=== PATIENT | male | born 1950 | race Caucasian/White ===

== ENCOUNTER 2020-01-09 14:13 | Inpatient (IN) | payer OTHER, MEDICARE, SELFPAY ==
[2020-01-09] VITALS (15 sets, daily range): BP systolic 118–147; BP diastolic 81–101; PULSE 77–102; RESP 11–26; TEMP 36.5–36.8; O2SAT 87–98; BMI 32.5
--- NOTE | 2020-01-09 14:14 | ECG_ITS ---
Measurements Intervals [place] Rate: 92 P: 55 NV: 182 QRS: -12 QRSD: 86 T: 35 QT: 352 QTc: 437 SINUS RHYTHM ANTERIOR MYOCARDIAL INFARCTION , POSSIBLY ACUTE [40+ ms Q WAVE AND/OR ST/T ABNOR ABNORMALITY IN V3/V4] INFERIOR MYOCARDIAL INFARCTION , PROBABLY OLD [40+ ms Q WAVE AND/OR ST/T ABNO ABNORMALITY IN II/aVF] MARKED ST ELEVATION, CONSIDER LATERAL INJURY [MARKED ST ELEVATION W/O NORMALLY INFLECTED T WAVE IN I/aVL/V5/V6] ACUTE [place] No previous ECG available for comparison Electronically Signed On 01-09-2020 16:36:37 CDT by Juanjo Hensley M.D. [id number]
--- NOTE | 2020-01-09 14:17 | ED_ITS ---
HPI - Chest Pain General: Chief Complaint: Chest Pain Stated Complaint: CHEST PAIN Time Seen by Provider: 01/09/20 14:17 History of Present Illness: HPI narrative: Mr. Aparicio is a 69-year-old male presents with an episode of chest pain via EMS. EMS had called in ahead of time and texted me a EKG that showed a clear STEMI. STEMI alert was called early. He has not had previous cardiology intervention. He did a day or 2 ago have some chest discomfort that resolved and then he began having it last night and progressively worsened until he called EMS today. Prior to arrival of EMS he had 325 aspirin intake and 2-3 sublingual nitro on his own EMS gave him 2 more nitro and then gave him a topical inch of Nitropaste. He denies being diabetic. Dr. Hensley was in the room and is assuming care of the patient at the same time I seen the patient. MD complaint: chest pain Onset (ago): hour(s) Timing of current episode: constant Prior episodes: Yes Onset: during exertion Pain location: substernal and left chest Pain radiation: left arm and left shoulder Severity: severe Quality: tightness and heaviness Relieving factors: nitroglycerin Exacerbating factors: exertion Associated symptoms: Reports diaphoresis, dyspnea and nausea Treatment prior to arrival: aspirin, nitroglycerin and oxygen Review of Systems Const: Reports: diaphoresis ENMT: Denies: throat pain, ear or mastoid pain, nasal discharge or nasal congestion Card: Denies: chest pain, edema, dyspnea on exertion or orthopnea Resp: Reports: dyspnea GI: Reports: nausea : Denies: flank pain, dysuria, urinary frequency or urinary urgency Skin/Breast: Denies: rash or pruritus [facility] ED PFSH: Medical History Acute anterior wall [place] Essential hypertension Social History Smoking and tobacco status: never smoked Physical Exam Const: COMMON NORMALS: no acute distress GENERAL APPEARANCE: cooperative and comfortable ORIENTATION/CONSCIOUSNESS: Yes awake, Yes oriented to person, Yes oriented to place and Yes oriented to time Eye: COMMON NORMALS: Equal, round and reactive pupils present, EOMs intact bilaterally, conjunctivae normal and no scleral icterus CONJUNCTIVA: Yes conjunctivae normal PUPIL: Yes Equal, round and reactive pupils present Neck/C-Spine: COMMON NORMALS: full ROM, no lymphadenopathy, supple and no JVD Lymph: LYMPHATIC: no lymphadenopathy noted and no lymphedema noted Resp: COMMON NORMALS: normal respiratory effort, No retractions, No use of accessory muscles and clear to auscultation bilaterally AUSCULTATION: clear to auscultation bilaterally Cardio: COMMON NORMALS: no JVD, regular rate, regular rhythm and No murmurs present (Cardio) RATE: regular rate RHYTHM: regular rhythm GI: COMMON NORMALS: Soft to palpation and No hepatosplenomegaly present AUSCULTATION: Yes normoactive bowel sounds PALPATION: Yes Soft to palpation, No Tenderness to palpation present (GI), No Guarding due to palpation present (GI) and Yes No hepatosplenomegaly present Extremity: COMMON NORMALS: normal to inspection, capillary refill normal, no clubbing, cyanosis or edema, no calf tenderness and no pedal edema Neuro: SENSORIUM/ORIENTATION: Yes oriented to person, Yes oriented to place and Yes oriented to time Skin: COMMON NORMALS: no rashes or lesions noted GENERAL SKIN EXAM: no rashes or lesions noted OTHER: Diaphoretic Course Vital Signs: Vital signs: Vital Signs Temperature 97.7 F 01/09/20 14:20 Pulse Rate 95 01/09/20 14:20 Respiratory Rate 18 01/09/20 14:20 Blood Pressure 144/85 01/09/20 14:20 Pulse Oximetry 98 01/09/20 14:20 MDM - Chest Pain MDM Narrative: Medical decision making narrative: EKG reviewed from EMS as well as EKG are done initially here in the department both shows acute anterior wall STEMI Dr. Hensley is already here and seen the patient at the same time I am. Ordered routine STEMI labs as well as 600 of Plavix 4000 of heparin he is already had his aspirin Dr. Hensley will assume care and he is already left the department for the Licensed Marriage And Family Therapist. Discharge Plan Discharge Condition: Serious Coding Level of Care Code ED Starting Gate Driver for [facility]
--- NOTE | 2020-01-09 14:17 | XACV_ITS ---
Ht: 183 cm Wt: 109 kg BSA: 2.38 m2 Gender: Male : 1950 Exam Priority: Routine Procedure(s): Procedure Description: Diagnostic procedure Procedure Description: PCI procedure Procedure Description: Left Heart Catheterization Procedure Description: Left ventriculography Procedure Description: Drug Eluting Coronary Stent Procedure Description: PTCA Procedure Description: Coronary Angiography Diagnostic Cath Status: Emergency Diagnostic Findings Patient presents with an acute anterior wall CA. Hemodynamically stable. Coronary angiography reveals right coronary artery dominance. The LAD is occluded proximally. Circumflex contains mild diffuse disease. Ramus intermedius is 100% occluded in the midportion. The right coronary artery is a large vessel with an unusual takeoff with mild nonobstructive disease. PCI Status: Emergency PCI LVEF Assessed: Yes PCI Indication: STEMI - Immediate PCI for STEMI Interventional Findings Wire was placed in the LAD. Balloon angioplasty opened the vessel. Patient was subsequently stented with 2 stents in the proximal LAD with good return of RISA-3 flow. Decision for PCI with Surgical Consult: No PCI for Multi-vessel Disease: No Conclusions Acute anterior wall CA with occluded LAD treated with angioplasty and stent and yarsani of flow. Occluded ramus intermedius branch. Significant left ventricular dysfunction in the distribution of the LAD. Ejection fraction 30% with dyskinetic apex. Interventional RX Recommendation: PCI w/o planned CABG Diagnostic RX Recommendation: PCI w/o planned CABG Anticoagulation: Heparin Ventriculography Ejection Fraction: 30.0 % Pressures Phase:Rest AO : 116 mmHg / 63 mmHg ( 82 mmHg ) @ 9:42:00 AM 94 mmHg / 77 mmHg ( 85 mmHg ) @ 9:42:00 AM 114 mmHg / 78 mmHg ( 95 mmHg ) @ 9:43:00 AM / ( 2 mmHg ) @ 10:00:00 AM 124 mmHg / 75 mmHg ( 94 mmHg ) @ :02:00 AM 122 mmHg / 71 mmHg ( 93 mmHg ) @ ::00 AM 130 mmHg / 87 mmHg ( 104 mmHg ) @ 10:05:00 AM 121 mmHg / 100 mmHg ( 108 mmHg ) @ 10:14:00 AM LV : 137 mmHg / 6 mmHg / @ ::00 AM 138 mmHg / 3 mmHg / @ ::00 AM 135 mmHg / 4 mmHg / @ ::00 AM Valves Phase:DefaultPhase AV : 0.0 mmHg @ 3:20:08 PM AV Mean Gradient: 0.0 mmHg @ 3:20:08 PM 0.0 mmHg @ 3:20:08 PM Clinical Evaluation EBL: 5mL-10mL Procedural Details Procedure Consent Obtained. Identified patient by full name and date of as verbalized by the patient/guarantor. Does the consent match the physician's order: Yes. Accurate & Complete Informed Consent: Yes. Inpatient/Outpatient History & Physical on Chart: Yes. If H&P is completed, is and addenduem needed: Yes; If yes, is the addendum complete: N/A. Visualize and Verify Site with Patient/Guarantor: N/A. Relevant Radiology Images available: Yes. The risks, benefits, and alternatives of sedation and/or procedure were discussed by physician. The patient agrees to continue. Procedure started. [facility] Clinical Fraility Score: 4: Vulnerable. Psychological Operations Specialist Indications: Other. Chest Pain Symptom Assessment: Atypical Angina. Cardiovascular Instability: No,. Correct patient, site and procedure confirmed by cath team. Current diagnosis: STEMI. PERRLA. 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 Lungs clear x 5 lobes. IV Site on Arrival: 18 gauge in the left hand. IV Fluids: 0.9% NaCl at KVO. 400 mL infused prior to lab clerk. Pre Procedural Pulses: right radial was 3+. Oxygen started at 2liters/min via nasal canula. bilateral groins was prepped with chloroprep then draped in the usual sterile fashion. right radial was prepped with chloroprep then draped in the usual sterile fashion. Physician notified. Baseline sample Acquired. HR: 71 BPM. Patient's family unavailable. Equipment: 6F - Radial. Physician arrived. Physician scrubbed in. Immediate Pre-Procedure Time Out. Correct Patient: Yes; Correct Procedure: Yes; Correct Site: Yes; Correct Patient Position: Yes; Correct Supplies: Yes; Dried Flammable Prep: Yes; Blood Products Available: N/A;. Lidocaine 1% infiltrated to the right radial. Arterial access obtained. A 6 prydeinig XB 3 catheter in over wire. Catheter inserted over the exchange wire. Multiple views taken of left coronary artery. [place] guidewire was advanced through the guide catheter to lesion in the prox LAD. Inflation number : 1 A AB TREK 3.00X12 RX BALLOON was prepped and advanced across the Prox LAD , then inflated to 8 HARIS for 0:20 seconds. Inflation number: 2 The AB TREK 3.00X12 RX BALLOON was reinflated across the Prox LAD, to 8 HARIS for 0:19 seconds. balloon out. Inflation Number : 3 A MDT R MAKAYLA 3.5X22 JUNG -Lot Number# [id number] exp 11/16/2020 was prepped and advanced across the Prox LAD. The stent was deployed at 12 HARIS for 0:46 seconds. stent balloon out. checking results. Inflation Number : 4 A MDT R MAKAYLA 3.0X8 JUNG -Lot Number# [id number] exp 05/29/2020 was prepped and advanced across the Prox LAD. The stent was deployed at 14 HARIS for 0:45 seconds. balloon out and checking results. wire out. Guide catheter out. A 6 prydeinig Angled Pig catheter in over wire. Catheter inserted over the exchange wire. LV gram performed in RAMIREZ @ 10 mL/second for a total of 30 mL. EDP Sample taken: LV 137/6,44; HR: 90 BPM; SpO2: 91%. EDP Sample taken: LV 138/3,45; HR: 100 BPM; SpO2: 87%. Pullback taken: LV 135/4,42; AO 124/75(94); Mean: 0mmHg, Peak to Peak: 0mmHg, SEP: 7sec/min; HR: 108 BPM; SpO2: 86%. Catheter out. Catheter removed over the exchange wire. A 6 prydeinig JR4 catheter in over wire. Multiple views taken of right coronary artery. Catheter out. A 6 prydeinig 3DRC catheter in over wire. Catheter out. A 6 prydeinig AL1 catheter in over wire. Multiple views taken of right coronary artery. Catheter out. TR band placed. Hemostasis obtained. Post Procedure: Pulses reassessed and unchanged. PERRLA. 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 No VTE prophylaxis required. Medication's Wasted: Lidocaine 1% = 18 mL. Medication's Wasted: Nitro = 49.8 mL. Medication's Wasted: Heparin = 1000 Units. Total IV fluids: 150 mL. Fluoro: 12:07. Contrast type used: Visipaque 320 mgI/mL, 500 mL bottle. [id number]. PCI Indication: STEMI. Post-op diagnosis: STEMI. Complications: none. Estimated blood loss: 5mL-10mL. Procedure completed. Patient transferred by wheelchair to 1st floor. Site: Right Radial artery Sheath Size: 6 Fr Hemostasis Success: Unsuccessful Procedure Medications Start: 2:45 PM Stop: 2:45 PM Medication: Versed Amount: 1 mg Route: I.V. Start: 2:46 PM Stop: 2:46 PM Medication: Fentanyl Amount: 50 mcg Route: I.V. Start: 2:47 PM Stop: 2:47 PM Medication: Fentanyl Amount: 50 mcg Route: I.V. Start: 2:47 PM Stop: 2:47 PM Medication: Versed Amount: 1 mg Route: I.V. Start: 2:52 PM Stop: 2:52 PM Medication: Versed Amount: 1 mg Route: I.V. Start: 2:52 PM Stop: 2:52 PM Medication: Fentanyl Amount: 50 mcg Route: I.V. I, the attending physician, have reviewed and verified all procedure medications. Yes, all medications given per verbal order Report Signatures Finalized by:Dr. Juanjo Hensley MD on 01/09/2020 3:27:37 PM
[2020-01-09] MEDS: heparin 5,000 unit/mL INJ 1 mL 4000 UNIT IVP (14:22)
--- NOTE | 2020-01-09 14:24 | P.HP_ITS ---
Providers/Chief Complaint Admitting Physician: Shellie Chief Complaint: CHEST PAIN History of Present Illness Waqar Aparicio is a 69 year old male with no known prior history of coronary disease who presented with a ST elevation VT. He had an episode of chest discomfort a couple days ago but it went away. Today while working on his boat he had the sudden onset of very typical chest discomfort with mild diaphoresis. No nausea or vomiting or shortness of breath. He called the ambulance who were about 45 minutes away. He was given aspirin, sublingual nitroglycerin and Nitropaste in route. He was also given 100 mcg of fentanyl. Here he was given 4000 units of heparin. His EKG shows ST segment elevation in the anterior precordial leads. Review of Systems General: Reports: 10 or more systems reviewed and unremarkable except in HPI and below Medications/Allergies Allergies Allergy/AdvReac Type Severity Reaction Status Date / Time No Known Allergies Allergy Verified 01/09/20 14:20 PFSH Acute PFSH: Medical History (Updated 01/09/20 @ 14:26 by Juanjo Hensley MD) Acute anterior wall [place] Essential hypertension Social History Smoking and tobacco status: never smoked Vitals/I&O/Wt Last Vital Signs Temp 97.7 F 01/09/20 14:20 Pulse 95 01/09/20 14:20 Resp 18 01/09/20 14:20 BP 144/85 01/09/20 14:20 Pulse Ox 98 01/09/20 14:20 Weight last 48 hrs Weight 240 lb Physical Exam Narrative: EXAM NARRATIVE: GENERAL: In general he is uncomfortable HEENT: Exam within normal limits. NECK: Supple without jugular vein distention. The carotid upstroke is normal without bruits. BACK: Exam normal. LUNGS: Clear. HEART: Regular rate and rhythm. ABDOMEN: Benign without organomegaly or tenderness. EXTREMITIES: No edema. NEUROLOGIC: Exam normal. SKIN: Unremarkable. A&P Assessment and plan (1) Essential hypertension: Status: Acute (2) Acute anterior wall [place]: Status: Acute Additional A&P Information Cardiac catheterization as soon as possible. Expect an LAD lesion. 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
[2020-01-09] MEDS: clopidogrel 300 mg Tablet 600 MG PO (14:25)
[2020-01-09 14:36] LABS: Basophils # 0.1 10^3/uL (0.0-0.1); Basophils % 0.5 %; Eosinophils # 0.2 10^3/uL (0.0-0.8); Eosinophils % 1.3 %; Hematocrit 44.7 % (42.0-52.0); Hemoglobin 14.5 g/dL (11.7-16.6); Lymphocytes # 1.6 10^3/uL (0.8-4.8); Lymphocytes % 13.4 %; Mean Corpuscular HGB Conc 32.4 g/dL (30.0-36.0); Mean Corpuscular Hemoglobin 29.8 pg (28.0-34.0); Mean Corpuscular Volume 91.8 fL (80-94); Mean Platelet Volume 11.1 fL (7.4-10.4); Monocytes % 8.7 %; Neutrophils % 75.6 %; Nucleated Red Blood Cells % 0 %; Platelet Count 232 10^3/cmm (130-400); Red Blood Count 4.87 10^6/uL (4.1-5.3); White Blood Count 11.9 10^3/uL (4.0-10.0)
[2020-01-09 14:52] LABS: INR 0.95 (0.8-1.2)
[2020-01-09 14:53] LABS: Alanine Aminotransferase 20 U/L (0-41); Alkaline Phosphatase 68 IU/L (40-130); Anion Gap 15.2 (5-19); Aspartate Amino Transferase 30 U/L (0-40); Blood Urea Nitrogen 25 mg/dL (8-23); Calcium 8.8 mg/dL (8.5-10.5); Carbon Dioxide 26 mmol/L (22-29); Chloride 100 mmol/L (98-107); Globulin 2.5 g/dL (1.3-4.6); Glomerular Filtration Rate 55.1 mL/min (90-130); Glucose 232 mg/dL (65-115); Osmolality Calculated 288 mOsm/kg (285-295); Potassium 4.2 mmol/L (3.5-5.1); Sodium 137 mmol/L (136-145); Total Bilirubin 0.3 mg/dL (0.15-1.2); Total Protein 6.5 g/dL (6.6-8.7)
[2020-01-09 14:58] LABS: Troponin(5th) Baseline 281 ng/mL (0-15)
--- NOTE | 2020-01-09 16:14 | ECG_ITS ---
Measurements Intervals [place] Rate: 89 P: 53 UT: 177 QRS: 6 QRSD: 93 T: 87 QT: 362 QTc: 440 SINUS RHYTHM LOW QRS VOLTAGE IN EXTREMITY LEADS PROBABLE INFERIOR MYOCARDIAL INFARCTION, PROBABLY OLD ANTEROLATERAL MYOCARDIAL INFARCTION, PROBABLY RECENT ACUTE [place] Compared to ECG 01/09/2020 14:26:59 Low QRS voltage now present ST (T wave) deviation no longer present Myocardial infarct finding still present Electronically Signed On 01-10-2020 18:09:15 CDT by Ngoc Posadas M.D. [email or web address]
[2020-01-09] MEDS: metoprolol tartrate 50 mg Tablet PO (19:09)
--- NOTE | 2020-01-09 19:09 | PC.NURSE ---
medication rounding delayed due to patient care
[2020-01-09] MEDS: sodium chloride 0.9% 1,000 ML 30 ML IV (19:53)
[2020-01-09] MEDS: atorvastatin 40 mg Tablet 80 MG PO (19:54)
--- NOTE | 2020-01-09 20:14 | ECG_ITS ---
Measurements Intervals [place] Rate: 74 P: 43 PA: 180 QRS: -14 QRSD: 101 T: 90 QT: 410 QTc: 456 SINUS RHYTHM PROBABLE INFERIOR MYOCARDIAL INFARCTION [35 ms Q WAVE IN II/aVF], PROBABLY OLD ANTEROLATERAL MYOCARDIAL INFARCTION [40+ ms Q WAVE IN I/aVL/V3-V6], PROBABLY RECENT ACUTE [place] Compared to ECG 01/09/2020 14:26:59 ST (T wave) deviation no longer present Myocardial infarct finding still present Electronically Signed On 01-10-2020 18:07:49 CDT by Ngoc Posadas M.D. [id number]
[2020-01-09 23:06] LABS: Troponin 5 6HR > 10000 ng/mL (0-15)
[2020-01-09 23:06] LABS: Troponin 5 2HR > 10000 ng/mL (0-15)
[2020-01-10] VITALS (10 sets, daily range): BP systolic 105–126; BP diastolic 71–88; PULSE 70–88; RESP 16–22; TEMP 36.6–37.1; O2SAT 92–98
--- NOTE | 2020-01-10 01:38 | ECG_ITS ---
Measurements Intervals [place] Rate: 73 P: 57 DC: 178 QRS: -12 QRSD: 94 T: 91 QT: 402 QTc: 445 SINUS RHYTHM LOW QRS VOLTAGE IN EXTREMITY LEADS [QRS DEFLECTION < 0.5 mV IN LIMB LEADS] ANTEROLATERAL MYOCARDIAL INFARCTION [40+ ms Q WAVE IN I/aVL/V3-V6], PROBABLY RECENT ACUTE [place] Compared to ECG 01/09/2020 14:26:59 Low QRS voltage now present ST (T wave) deviation no longer present Myocardial infarct finding still present Electronically Signed On 01-10-2020 18:01:22 CDT by Ngoc Posadas M.D. [id number]
[2020-01-10 05:29] LABS: Basophils % 0.2 %; Eosinophils % 0.1 %; Hematocrit 43.7 % (42.0-52.0); Hemoglobin 14.1 g/dL (11.7-16.6); Lymphocytes # 1.4 10^3/uL (0.8-4.8); Lymphocytes % 9.8 %; Mean Corpuscular HGB Conc 32.3 g/dL (30.0-36.0); Mean Corpuscular Hemoglobin 29.7 pg (28.0-34.0); Mean Corpuscular Volume 92.2 fL (80-94); Mean Platelet Volume 10.9 fL (7.4-10.4); Monocytes # 1.3 10^3/uL (0.2-0.9); Monocytes % 9.4 %; Neutrophils % 80.1 %; Nucleated Red Blood Cells % 0 %; Platelet Count 241 10^3/cmm (130-400); Red Blood Count 4.74 10^6/uL (4.1-5.3); Red Cell Distribution Width 14.1 % (12.1-15.1); White Blood Count 13.8 10^3/uL (4.0-10.0)
--- NOTE | 2020-01-10 05:37 | ECG_ITS ---
Measurements Intervals [place] Rate: 73 P: 14 CT: 179 QRS: -2 QRSD: 102 T: 102 QT: 422 QTc: 467 SINUS RHYTHM LOW QRS VOLTAGE IN EXTREMITY LEADS INFERIOR MYOCARDIAL INFARCTION, PROBABLY OLD ANTEROLATERAL MYOCARDIAL INFARCTION, PROBABLY RECENT ACUTE [place] Compared to ECG 01/09/2020 14:26:59 Low QRS voltage now present ST (T wave) deviation no longer present Myocardial infarct finding still present Electronically Signed On 01-10-2020 18:00:44 CDT by Ngoc Posadas M.D. [email or web address]
[2020-01-10] MEDS: alum-mag-hydroxide-sime 30 mL UDC PO (05:40)
--- NOTE | 2020-01-10 05:56 | PC.NURSE ---
0540 Patient C/O indigestion. Not radiating, states Maalox might help, EKG done without changes noted by myself, patient reports feeling much better HR 77, BP 121/73 RR 13 no diaphoresis or ectopy noted
[2020-01-10 05:59] LABS: Anion Gap 15.7 (5-19); Blood Urea Nitrogen 21 mg/dL (8-23); Calcium 8.8 mg/dL (8.5-10.5); Carbon Dioxide 23 mmol/L (22-29); Chloride 104 mmol/L (98-107); Glomerular Filtration Rate 84.2 mL/min (90-130); Glucose 139 mg/dL (65-115); Osmolality Calculated 287 mOsm/kg (285-295); Potassium 3.7 mmol/L (3.5-5.1); Sodium 139 mmol/L (136-145)
--- NOTE | 2020-01-10 06:17 | PM.PN ---
Subjective Subjective: Interval history: Waqar has had a relatively uneventful night. The nurse mentioned a very brief episode of a irregular tachycardia which on the monitor looks like an episode of atrial fibrillation. It was very short and self-limiting. He has some residual discomfort in his midepigastrium but feels much better than he did yesterday. His heart rates have otherwise been below 100 and his rhythm sinus rhythm. Blood pressures have been well within the normal limits to slightly high. Medications: Reviewed: Yes Vitals/I&O/Wt Last Vital Signs Temp 98 F 01/10/20 05:35 Pulse 83 01/10/20 05:35 Resp 21 H 01/10/20 05:35 BP 125/86 01/10/20 05:35 Pulse Ox 96 01/10/20 05:35 01/09/20 01/09/20 01/10/20 14:59 22:59 06:59 Intake Total 360 / 360 340 / 700 Output Total 875 / 875 600 / 1475 Balance -515 / -515 -260 / -775 Weight last 48 hrs Weight 240 lb Physical Exam Narrative: EXAM NARRATIVE: GENERAL: In general he looks and feels well HEENT: Exam within normal limits. NECK: Supple without jugular vein distention. The carotid upstroke is normal without bruits. BACK: Exam normal. LUNGS: Clear. HEART: Regular rate and rhythm. ABDOMEN: Benign without organomegaly or tenderness. EXTREMITIES: No edema. NEUROLOGIC: Exam normal. SKIN: Unremarkable. Data : 01/10/20 05:14 01/10/20 05:14 Other data: The troponin is well above 10,000. His creatinine has come down to normal where it was slightly high yesterday. A&P Assessment and plan (1) Essential hypertension: Status: Acute (2) Acute anterior wall [place]: Status: Acute Additional A&P Information We will continue to monitor him today. I asked him to get up and move around a little bit. This was a large anterior wall [place] with significant myocardium involvement. I suspect that he was having difficulties for longer than he admitted yesterday. His troponin is well over 10,000. I will make medication adjustments today. If he does well he may go home tomorrow morning. We will also monitor him for any recurrence of any arrhythmias. Attestations Medical Necessity Statement*: Needs continued hospitalization for management of an acute anterior wall [place]. 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
[2020-01-10] MEDS: aspirin 81 mg EC Tablet PO (08:47)
[2020-01-10] MEDS: clopidogrel 75 mg Tablet PO (08:47)
[2020-01-10] MEDS: lisinopril 10 mg Tablet PO (08:48)
[2020-01-10] MEDS: metoprolol tartrate 50 mg Tablet PO ×2 (08:48→18:07)
--- NOTE | 2020-01-10 09:54 | PC.CHAP ---
Pastoral Care Encounter/Spiritual Assessment Type of Contact [] Declined retail greeter visit [] Patient/Family/Request visit [] Outpatient visit [] Follow-up visit [] Physician referral [] Code/Alert [x] Routine visit [] Staff referral [] Actively dying [] Patient sleeping [] Family support [] [] Out of room [] Palliative care [] [] Receiving care in room [] Pre-surgical visit [] Trauma [] Long length of stay [] ICU visit [] Other: Relational/Emotional Strength [] Patient feels connected with others/family/visitors/staff [] Distress [] Loneliness/isolation [] Abandonment Spirituality of Patient [] Person of Edilia [] Attends Protestant of their Edilia [] Believes in Prayer [] Reads Bible or Methodist materials [] There are Spiritual issues to be addressed Receiver Stocker Interventions [x] Prayer [] Active listening [] Non-anxious presence [] Spiritual/emotional support [] Crisis/trauma care [] Spiritual counseling [] Bereavement support [] Provided bereavement packet [] Provided Bible/devotional materials [] Provided toy/stuffed animal, coloring book to patient or family member [] Provided Communion [] Anointing/[place] [] Salvation [x] Completed spiritual assessment [] Other: Impact on Illness or Injury [] Angry [] Fearful [] Anxious [] Often cries [] Exhaustion [] Unable to work [] Unable to attend nondenominational [] Unable to walk/stand [] Unable to read [] Unable to drive [] Unable to eat/drink [] Unable to sleep [] Unable to be with family [] Patient intubated [] Other: Summary Patient resting from stent surgery. Time spent with patient 15 min
--- NOTE | 2020-01-10 11:00 | PC.NURSE ---
patient ambulating in [place] to start working up his strength patient reports a poor appetite today educated patient on the recuperation period after a cardiac event patient verbalized understanding
--- NOTE | 2020-01-10 15:00 | PC.NURSE ---
patient reports he had a very good nap and feels like he needs to walk again patient ambulated in [place] to the end and back tolerated activity well denies chest pain or SOB will continue to monitor
--- NOTE | 2020-01-10 18:30 | PC.NURSE ---
IV to left hand Discontinued at this time due to patient discomfort and request for removal; cath intact min bleeding noted patient tolerated well Patient has an IV access in the right AC; reinforced dressing; patient denies any pain or discomfort at sight dressing is clean dry and intact no bruising or redness noted
--- NOTE | 2020-01-10 19:23 | PC.NURSE ---
Addendum entered by Nadine Rodriguez RN 01/10/20 19:24: noted activity at 1330 entered at wrong time Original Note: patient resting in bed appears to be sleeping well Door closed and pearce way noise decreased so patient can rest will contniue to monitor
[2020-01-10] MEDS: sodium chloride 0.9% 1,000 ML 30 ML IV (19:53)
--- NOTE | 2020-01-10 19:55 | PC.NURSE ---
BEDSIDE REPORT FROM OFF GOING NURSE. PT IS RESTING IN BED. NO C/O PAIN AT THIS TIME. DRESSING TO RIGHT RADIAL C/D/I. WILL CONTINUE TO MONITOR.
[2020-01-10] MEDS: atorvastatin 40 mg Tablet 80 MG PO (20:04)
[2020-01-11] VITALS: BP 101/69; PULSE 75; RESP 19; TEMP 36.6; O2SAT 91
[2020-01-11 04:00] VITALS: BP 109/70; PULSE 83; RESP 16; TEMP 36.7; O2SAT 93
--- NOTE | 2020-01-11 06:10 | PC.NURSE ---
PT IS READY TO GET DISCHARGED. PT DENIES PAIN AT THIS TIME. V/S WNL. WILL CONTINUE TO MONITOR.
[2020-01-11 07:46] VITALS: BP 108/65; PULSE 79; RESP 19; O2SAT 93
[2020-01-11] MEDS: aspirin 81 mg EC Tablet PO (09:26)
[2020-01-11] MEDS: clopidogrel 75 mg Tablet PO (09:27)
[2020-01-11] MEDS: lisinopril 10 mg Tablet PO (09:30)
[2020-01-11] MEDS: metoprolol tartrate 50 mg Tablet PO (09:30)
[2020-01-11 10:04] VITALS: PULSE 82; O2SAT 92
--- NOTE | 2020-01-11 12:16 | USCV_ITS ---
Waqar Aparicio Age: 69 Gender: M : 1950 Exam Date: 01/11/2020 12:45 Ordering Phys: Brianda Agarwal MD ([email or web address]) Technologist: Kristan Dc Exam Location: [facility] [place] Indication: STEMI BP: 108 / 65 HR: 76 Rhythm: Sinus Technical Quality: Adequate MEASUREMENTS (Male / Female) Normal Values 2D ECHO LV Diastolic Diameter PLAX 4.4 cm 4.2 - 5.9 / 3.9 - 5.3 cm LV Systolic Diameter PLAX 2.7 cm LV Chamber Size 4.4 cm IVS Diastolic Thickness 1.6 cm 0.6 - 1.0 / 0.6 - 0.9 cm IVS Systolic Thickness 1.9 cm LVPW Diastolic Thickness 0.9 cm 0.6 - 1.0 / 0.6 - 0.9 cm LVPW Systolic Thickness 1.5 cm RV Chamber Size 2.7 cm LVOT Diameter 1.8 cm LV Ejection Fraction 2D Teich 69.7 % LV Ejection Fraction MOD 2C 59.1 % LV Ejection Fraction 2C AL 57.9 % LA Diameter 4.7 cm LA Width 3.7 cm LA Height 6.5 cm RA Width 2.4 cm RA Height 4.4 cm Aorta at Sinotubular Diameter 2.9 cm M-MODE LV Diastolic Diameter MM 4.5 cm 4.2 - 5.9 / 3.9 - 5.3 cm LV Systolic Diameter MM 3.7 cm LV Ejection Fraction MM Teich 36.3 % IVS Diastolic Thickness MM 1.3 cm 0.6 - 1.0 / 0.6 - 0.9 cm IVS Systolic Thickness MM 1.8 cm LVPW Diastolic Thickness MM 1.4 cm 0.6 - 1.0 / 0.6 - 0.9 cm LVPW Systolic Thickness MM 1.9 cm Aortic Annulus Diameter 3.3 cm LA Ao Ratio MM 1.4 MV E Point Septal Separation 0.5 cm DOPPLER AV Peak Velocity 130.0 cm/s LVOT Peak Velocity 95.0 cm/s AV Area Cont Eq vti 1.7 cm squared AV Area Cont Eq pk 1.8 cm squared MV Area PHT 4.8 cm squared Mitral E to A Ratio 0.8 MV E' Velocity 7.0 cm/s Mitral E to MV E' Ratio 13.4 Mitral E to LV E' Lateral Ratio 10.3 Mitral E to LV E' Septal Ratio 19.2 TR Peak Velocity 286.0 cm/s TR Peak Gradient 32.7 mmHg TV Peak E Velocity 57.0 cm/s Right Atrial Pressure 3.0 mmHg Pulmonary Artery Systolic Pressu 35.7 mmHg FINDINGS Left Ventricle Mildly increased left ventricular cavity size. Severely decreased left ventricular systolic function. Left ventricular ejection fraction is estimated at 36 %. There appeared to be mid to distal anterior septal and apical akinesis. Grade I/IV diastolic dysfunction (abnormal relaxation filling pattern), normal to mildly elevated filling pressures. There appeared to be hazy structure in the apex of left ventricle suspicious for LV thrombus. Due to suboptimal quality study contrast echo is suggested to rule out thrombus.. Right Ventricle The right ventricle is normal in size and function. Right Atrium The right atrium is normal in size. Left Atrium The left atrium is normal in size. Mitral Valve Moderately thickened mitral valve. No mitral valve stenosis. Moderate mitral valve regurgitation. Aortic Valve Moderate aortic valve calcification. No aortic valve stenosis. No aortic valve regurgitation. Tricuspid Valve Mild tricuspid valve regurgitation. Pulmonic Valve Structurally normal pulmonic valve without significant stenosis. There is no pulmonic regurgitation. Pericardium Normal pericardium without effusion. Aorta Normal ascending aorta dimension. CONCLUSIONS 1-Mildly increased left ventricular cavity size. Severely decreased left ventricular systolic function. Left ventricular ejection fraction is estimated at 36 %. There appeared to be mid to distal anterior septal and apical akinesis. Grade I/IV diastolic dysfunction (abnormal relaxation filling pattern), normal to mildly elevated filling pressures. There appeared to be hazy structure in the apex of left ventricle suspicious for LV thrombus. Due to suboptimal quality study contrast echo is suggested to rule out thrombus.. 2-Moderately thickened mitral valve. No mitral valve stenosis. Moderate mitral valve regurgitation. 3-Mild tricuspid valve regurgitation. 4-There is no pericardial effusion. 5-Pulmonary artery systolic pressure is within normal limits. 6-Right atrial pressure is around 5 mm of mercury. 7-There are no prior echocardiogram studies to compare. Brianda Agarwal MD (Electronically Signed) Final Date: 11 January 2020 17:38 S
--- NOTE | 2020-01-11 13:01 | P.DS_ITS ---
Discharge Providers Date of Admission: 01/09/20 16:40 Date of Discharge: January 11, 2020 Attending Provider at Admission: Juanjo Hensley MD Attending Provider at Discharge: Juanjo Hensley MD Primary Care Provider: Yuriy Salazar MD Diagnoses at Discharge Discharge Diagnosis (1) Essential hypertension: Status: Acute (2) Acute anterior wall KS: Status: Acute Reason for Visit Reason for Visit: CHEST PAIN Hospital Course Discharge Summary: 69-year-old male past medical history seen for hypertension hyperlipidemia presented with anterior wall ST elevation KS he was taken to the Operating Room Coordinator treated with drug-eluting stent. Left ventricular ejection fraction was estimated at 30%. Over next couple of days patient recovered with optimization of medicines. He is asymptomatic denies any chest pain. He is w alking around without any difficulty. He denies heart failure symptoms. Right wrist wound looks good. He is being discharged home. He is going to follow-up with Dr. Proctor. I will ask for echocardiogram to assess LV function before discharge. Physical Exam Narrative: EXAM NARRATIVE: GENERAL: Patient is alert, awake and oriented x3. NECK: No jugular vein distension. HEENT: No cyanosis. No icterus. No pallor. HEART: Regular S1 and S2. No murmur, rub or gallop. LUNGS: Clear to auscultate bilaterally. ABDOMEN: Soft, nontender and nondistended. Positive bowel sounds. No guarding, rebound or tenderness. CENTRAL NERVOUS SYSTEM: Grossly nonfocal. 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 Stat Exams 01/09/20 14:17 Completed Pending at discharge Category Date Time Status CV echo complete* [id number] Routine Ultrasound 01/11/20 12:16 Ordered Vitals: Last Vital Signs Temp 98.1 F 01/11/20 04:00 Pulse 82 01/11/20 10:04 Resp 19 H 01/11/20 07:46 BP 108/65 01/11/20 07:46 Pulse Ox 92 01/11/20 10:04 Discharge Plan Discharge Patient Disposition: Home, Self-Care Condition: Stable Prescriptions: New aspirin 81 mg Tablet,Delayed Release (Dr/Ec) 81 mg PO DAILY Qty: 90 RF: 4 atorvastatin 40 mg Tablet 80 mg PO BEDTIME Qty: 90 RF: 4 clopidogrel 75 mg Tablet 75 mg PO DAILY Qty: 90 RF: 4 lisinopril 10 mg Tablet 10 mg PO DAILY Qty: 90 RF: 4 metoprolol tartrate 50 mg Tablet 50 mg PO BID Qty: 60 RF: 4 Nitrostat 0.4 mg Tablet, Sublingual 0.4 mg sublingual Q5M PRN (Reason: Chest Pain) Qty: 30 RF: 3 Protonix 40 mg tablet,delayed release (DR/EC) 40 mg PO DAILY 28 Days RF: 3 Discharge Orders: Discharge Order (Routine); Ordered 01/11/20 Ordered By: Brianda Agarwal Referrals: Yuriy Salazar MD [Primary Care Provider] - Discharge Diet: Cardiac and Low Salt Discharge Activity: Increase activity as tolerated Patient Instructions: Metoprolol (By mouth), Nitroglycerin (By mouth), Lisinopril (By mouth), Aspirin (By mouth), Atorvastatin (By mouth), Clopidogrel (By mouth), Pantoprazole (By mouth), Low Sodium Diet, Myocardial Infarction (DC), Chest Pain Stoplight, Post Angiogram Home Care Instructions, Post Heart Attack Stoplight Activity Restrictions/Additional Instructions: You will have a follow-up with Monica Caldera NP in 7 days and a follow-up with Dr Hensley in 6 weeks. [facility] will be calling you with these appointments. If you have not heard from them by Monday afternoon, please call them at [phone]. Discharge Date/Time: 01/11/20 14:06 Discharge Attestations Time Spent in Discharge Care*: greater than 30 min Specific Discharge Activities: Specific discharge activities: educating patient and educating and/or supporting family/caregiver Quality Metrics Clinical Quality Measures During this hospital stay, did patient experience: AMI Clinical Trial Participant: No Contraindication to aspirin (AMI): Aspirin given Contrai ndication to statin: Statin prescribed Contraindication to PCI: PCI performed Contraindication to Fibrinolytics: Alternative treatment initiated Coding Level of Care Code Established 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
[2020-01-11 13:38] VITALS: PULSE 82; O2SAT 92
--- NOTE | 2020-01-11 14:07 | PC.NURSE ---
right antecubital iv dc'd.pressure held x 3 min and drsg applied.pt tolerated procedure well.
--- NOTE | 2020-01-11 18:09 | PC.NURSE ---
pt had echocardiogram just prior to discharge today.at 1725 dr carrera notified me that echo showed possible atrial thrombus ..and requested that i phone in prescription for eliquis, and to notify pt to pick it up tonight.time was of the essence..since pharmacies will be closing soon , and pt lives miles from nearest open pharmacy.i notified pt and ...and mentioned that she was on xarelto ,and would this be acceptable substitution for eliquis..since they may not be able to get to a pharmacy before they close tonight.i called dr carrera and he stated that this was acceptable due to the situation.dr carrera states he will order an echo with contrast at the earliest opening.i instructed pt and spouse to call dr carrera personally on monday morning for specifics.i also instructed in s/sxs stroke,and to call ems immediately should s/sxs appear. both verb understanding of instructions
== END 2020-01-11 14:06 | disposition home or self-care (01) | DRG 247 ==
LOC: ER 14:29 → CCL 14:32 → CSU 16:52
PROVIDERS: Family Medicine; Internal Medicine Cardiovascular Disease; Admitting Provider Internal Medicine Cardiovascular Disease; PCP Family Medicine; Visit Provider Internal Medicine Cardiovascular Disease
PROC: 027035Z Dilation of Coronary Artery, One Artery with Two Drug-eluting Intraluminal Devices, Percutaneous Approach (ICD-10-PCS; principal; 2020-01-09 13:00)
PROC: 027035Z Dilation of Coronary Artery, One Artery with Two Drug-eluting Intraluminal Devices, Percutaneous Approach (ICD-10-PCS; 2020-01-09 13:00)
DX: I21.09 ST elevation (STEMI) myocardial infarction involving other coronary artery of anterior wall (principal); I10 Essential (primary) hypertension; E78.5 Hyperlipidemia, unspecified; I48.91 Unspecified atrial fibrillation; I25.10 Atherosclerotic heart disease of native coronary artery without angina pectoris
CPT/HCPCS: 12345; 36415; 80048; 80053; 83735; 84484; 85025; 85610; 93005; 93306; 93452; 96375; 99283; C1725; C1769; C1874; C1887; C1894; C9606; J1644; J2001; J2250; J3010; J3490; J7030; Q9967

== ENCOUNTER 2020-01-20 07:53 | Outpatient (CLI) | payer OTHER, MEDICARE, SELFPAY ==
--- NOTE | 2020-01-20 08:04 | USCV_ITS ---
Waqar Aparicio Age: 69 Gender: M : 1950 Exam Date: 01/20/2020 08:23 Ordering Phys: Brianda Agarwal MD ([email or web address]) Technologist: Ele Li Exam Location: [facility] [place] Indication: DVT BP: / HR: 74 Rhythm: Sinus Technical Quality: Adequate MEASUREMENTS (Male / Female) Normal Values 2D ECHO LV Diastolic Diameter PLAX 6.1 cm 4.2 - 5.9 / 3.9 - 5.3 cm LV Systolic Diameter PLAX 4.5 cm LV Chamber Size 5.3 cm IVS Diastolic Thickness 1.5 cm 0.6 - 1.0 / 0.6 - 0.9 cm IVS Systolic Thickness 1.9 cm LVPW Diastolic Thickness 1.3 cm 0.6 - 1.0 / 0.6 - 0.9 cm LVPW Systolic Thickness 1.7 cm RV Chamber Size 3.7 cm LVOT Diameter 2.0 cm LV Ejection Fraction 2D Teich 48.7 % LA Diameter 2.7 cm LA Width 3.9 cm LA Height 4.5 cm RA Width 3.8 cm RA Height 4.4 cm Aorta at Sinotubular Diameter 3.1 cm FINDINGS Left Ventricle Right Ventricle Right Atrium Left Atrium Mitral Valve Aortic Valve Tricuspid Valve Pulmonic Valve Pericardium Aorta CONCLUSIONS Please note that this is a limited contrast study to rule out LV thrombus as there was suspicion on regular echo. Mildly increased left ventricular cavity size. Severely decreased left ventricular systolic function. Left ventricular ejection fraction is estimated at 36 %. There appeared to be mid to distal anterior septal and apical akinesis. Grade I/IV diastolic dysfunction (abnormal relaxation filling pattern), please note that this is a contrast study to rule out LV thrombus. There is no left ventricle thrombus noted. Cannot compare with prior study since this is a study with contrast however no left ventricle thrombus noted. Brianda Agarwal MD (Electronically Signed) Final Date: 20 January 2020 17:54 S MTDD
[2020-01-20] MEDS: perflutren protein-a microsphr 0.22 mg/mL SDV 3 mL IV (09:30)
== END 2020-01-20 07:54 | disposition home or self-care (01) ==
LOC: US 07:54
PROVIDERS: PCP Family Medicine; Visit Provider Internal Medicine Cardiovascular Disease
DX: I50.9 Heart failure, unspecified (principal)
CPT/HCPCS: 80048; C8924; C8929; Q9956

== ENCOUNTER 2020-01-22 23:30 | Inpatient (IN) | payer OTHER, MEDICARE, SELFPAY ==
[2020-01-22 23:36] VITALS: BP 134/82; PULSE 95; RESP 18; TEMP 36.7; O2SAT 91; BMI 31.8
--- NOTE | 2020-01-22 23:46 | XR_ITS ---
WS: [id number] XR chest 1V portable [id number] REASON FOR EXAM: Dyspnea FINDINGS: Cardiomegaly changes are noted. Reticular changes both lung mujica suggesting chronic interstitial findings. There is no pneumonia, pleural effusion, pulmonary edema, or mass effect. The hilum and apices normal. XR/XR chest 1V portable [id number] IMPRESSION: Cardiomegaly Chronic interstitial findings.
[2020-01-23] VITALS (24 sets, daily range): BP systolic 95–137; BP diastolic 56–87; PULSE 63–104; RESP 10–24; TEMP 36.1–36.8; O2SAT 93–99
--- NOTE | 2020-01-23 00:12 | CTR_ITS ---
PROCEDURE INFORMATION: Exam: CT Angiography Chest With Contrast Exam date and time: 01/23/2020 12:25 AM Age: 69 years old Clinical indication: Cough and shortness of breath and other: Hemoptysis; Cough with hemorrhage; Prior surgery; Surgery date: <1 month; Surgery type: Stents 2 weeks ago TECHNIQUE: Imaging protocol: Computed tomographic angiography of the chest with intravenous contrast. 3D rendering: MIP and/or 3D reconstructed images were created by the technologist. Radiation optimization: All CT scans at this facility use at least one of these dose optimization techniques: automated exposure control; mA and/or kV adjustment per patient size (includes targeted exams where dose is matched to clinical indication); or iterative reconstruction. Contrast material: OMNI 350; Contrast volume: 95 ml; Contrast route: INTRAVENOUS (IV); COMPARISON: No relevant prior studies available. RADIATION DOSE METRICS: Total DLP (mGy-cm): 632.68 FINDINGS: Pulmonary arteries: No pulmonary emboli identified. Aorta: Mild atherosclerotic calcification of the thoracic aorta. No thoracic aortic aneurysm. Lungs: Diffuse bilateral interstitial thickening, consistent with pulmonary edema. Moderate patchy groundglass opacities scattered throughout both lungs. This may be a manifestation of pulmonary edema, pulmonary hemorrhage, hypersensitivity pneumonitis, and infectious process (especially opportunistic). Pleural space: No pneumothorax. Small bilateral pleural effusions. Heart: Heart size within normal limits. Small pericardial effusion. Lymph nodes: Enlarged noncalcified right tracheobronchial lymph node measuring 1.5 cm short axis on series 2, image 272. This is nonspecific. Calcified subcarinal, right tracheobronchial, and left tracheobronchial lymph nodes, consistent with old granulomatous disease. Bones/joints: Unremarkable. No acute fracture. Soft tissues: Unremarkable. Other findings: Images of the upper abdomen were reviewed and are unremarkable. CT/CT angio chest PE protcl [id number] IMPRESSION: 1. No pulmonary emboli identified. 2. Findings suggesting pulmonary edema of moderate severity. Pulmonary hemorrhage, hypersensitivity pneumonitis, and infectious process (especially opportunistic) could be coexisting. 3. Small bilateral pleural effusions. 4. Small pericardial effusion. Radiation Dose CTDIVOL = (mGy): DLP = 632.68 (mGy-cm)
--- NOTE | 2020-01-23 00:13 | ECG_ITS ---
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 Measurements Intervals [place] Rate: 85 P: 59 ND: 185 QRS: 66 QRSD: 102 T: 134 QT: 400 QTc: 478 Interpretive Statements SINUS RHYTHM INDETERMINATE AXIS LOW QRS VOLTAGE ANTEROLATERAL MYOCARDIAL INFARCTION, PROBABLY RECENT ACUTE FL Compared to ECG 01/10/2020 05:40:33 Indeterminate axis now present Myocardial infarct finding still present Electronically Signed On 01-23-2020 16:25:15 CDT by Ngoc Posadas M.D. [id number]
[2020-01-23 00:42] LABS: Basophils # 0.1 10^3/uL (0.0-0.1); Basophils % 0.7 %; Eosinophils # 0.3 10^3/uL (0.0-0.8); Eosinophils % 3.4 %; Hematocrit 39.4 % (42.0-52.0); Hemoglobin 12.9 g/dL (11.7-16.6); Lymphocytes # 1.1 10^3/uL (0.8-4.8); Lymphocytes % 12.4 %; Mean Corpuscular HGB Conc 32.7 g/dL (30.0-36.0); Mean Corpuscular Hemoglobin 29.5 pg (28.0-34.0); Mean Corpuscular Volume 90.2 fL (80-94); Mean Platelet Volume 11.4 fL (7.4-10.4); Monocytes # 0.8 10^3/uL (0.2-0.9); Monocytes % 8.4 %; Neutrophils # 6.7 10^3/uL (1.8-7.7); Neutrophils % 74.7 %; Nucleated Red Blood Cells % 0 %; Platelet Count 432 10^3/cmm (130-400); Red Blood Count 4.37 10^6/uL (4.1-5.3); Red Cell Distribution Width 13.2 % (12.1-15.1); White Blood Count 8.9 10^3/uL (4.0-10.0)
[2020-01-23 00:52] LABS: Alanine Aminotransferase 24 U/L (0-41); Albumin Level 3.5 g/dL (3.5-5.2); Alkaline Phosphatase 105 IU/L (40-130); Aspartate Amino Transferase 19 U/L (0-40); Blood Urea Nitrogen 18 mg/dL (8-23); Calcium 9.2 mg/dL (8.5-10.5); Carbon Dioxide 26 mmol/L (22-29); Chloride 102 mmol/L (98-107); Globulin 3.3 g/dL (1.3-4.6); Glomerular Filtration Rate 60.4 mL/min (90-130); Glucose 152 mg/dL (65-115); Osmolality Calculated 287 mOsm/kg (285-295); Sodium 139 mmol/L (136-145); Total Bilirubin 0.3 mg/dL (0.15-1.2); Total Protein 6.8 g/dL (6.6-8.7)
[2020-01-23 01:03] LABS: Troponin(5th) Baseline 598 ng/L (0-15)
[2020-01-23 01:08] LABS: INR 1.05 (0.8-1.2)
[2020-01-23 01:09] LABS: Partial Thromboplastin Time 28.7 SECONDS (23.9-36.7)
[2020-01-23 01:15] LABS: Lactic Sepsis W/Reflex 1.1 mmol/L (0.5-2.2)
[2020-01-23 01:24] LABS: NT Pro B Type Natriuretic Pept 3927 pg/mL (0-125)
--- NOTE | 2020-01-23 01:26 | ED_ITS ---
HPI - SOB/Dyspnea General: Chief Complaint: Shortness of Breath/Dyspnea Stated Complaint: congested/sob Time Seen by Provider: 01/22/20 23:46 Source: patient and family Mode of arrival: ambulatory Limitations: no limitations History of Present Illness: HPI Narrative: Mr. Aparicio is a 69-year-old male who comes in complaining of abrupt onset of shortness of breath, cough and hem optysis that began this evening. The patient of note was recently in the hospital for a ST elevation myocardial infarction treated with 2 stents in the LAD. He was discharged on Plavix and Xarelto as there was a concern of a mural thrombus in the left ventricle but a contrasted echocardiogram has since ruled that out. Patient denies any chest pain and denies fever. He has had a cough productive of some brown sputum as well. Again he denies any chills or fever. He denies any known exposures to the coronavirus. Patient states he is been recovering well since his AL and has had no other complaints or concerns. He is unaware of anything that is making his symptoms better or worse. He is denying any chest pain. He denied any history of DVT or PE. Associated symptoms: Deny abdominal pain, chest congestion, chest pain, diaphoresis, dizziness, extremity pain, fever(s), hemoptysis, lightheadedness, nausea, orthopnea, palpitations, syncope or vomiting Review of Systems Const: Denies: fever(s), chills, body aches, fatigue, malaise or diaphoresis Eyes: Denies: change in vision, blurry vision, blind spots, photophobia, eye discharge or eye redness ENMT: Denies: throat pain, odynophagia, hoarseness, swelling of lips/tongue, oral sores, ear or mastoid pain, ear discharge, change in hearing or nasal discharge Card: Denies: chest pain, palpitations, irregular heart rhythm, edema, lightheadedness, syncope, pre-syncope, dyspnea on exertion or orthopnea Resp: Reports: dyspnea and productive cough (With mild hemoptysis); Denies: non-productive cough, wheezing, hemoptysis or chest congestion GI: Denies: abdominal pain, nausea, vomiting, hematemesis, coffee ground emesis, heartburn, diarrhea, constipation, GI cramping, hematochezia or melena : Denies: flank pain, dysuria, urinary frequency, urinary urgency or hematuria Musc: Denies: neck pain, back pain, extremity pain, extremity swelling, joint pain, joint swelling, joint redness, joint warmth or joint stiffness Skin/Breast: Denies: rash, pruritus, erythema, skin tenderness or jaundice Neuro: Denies: headache(s), numbness in extremities, weakness in extremities, sensory changes, lack of coordination, difficulty walking, dizziness, vertigo, confusion, Slurred speech present or seizure-like activity Vikas/Lymph: Denies: easy bruising, easy bleeding, petechiae, purpura or enlarged lymph nodes All/Imm: Denies: urticaria, throat swelling, tongue swelling, facial swelling or acute wheezing PFSH ED PFSH: Medical History (Updated 01/23/20 @ 02:22 by Ya Dumas) Chronic GERD Coronary artery disease Essential hypertension Hyperlipidemia Family History Brother CAD (coronary artery disease) Family history of premature coronary artery disease Hypertension Mother Hypertension Sister Hypertension Grandfather Stroke Denies family history of Diabetes Clotting disorder Dementia Hyperlipidemia Psychiatric illness Chronic kidney disease (CKD) Suicide Anesthesia complication Bleeding disorder Lung disease Cancer Social History Smoking and tobacco status: never smoked Alcohol intake: current Alcohol intake frequency: holidays/special occasions only Physical Exam Const: COMMON NORMALS: no acute distress, patient oriented x3, no limitations, healthy appearing and well nourished GENERAL APPEARANCE: cooperative, well kempt and well developed HENMT: COMMON NORMALS: normocephalic, atraumatic, external ears normal, EAC's normal and Normal external nose present HEAD & SCALP: normal to inspection, normocephalic and atraumatic FACE & SINUS: normal facial exam and face symmetric NOSE: Normal external nose present and Normal nares present EXTERNAL EAR: Yes external ears normal EXTERNAL AUDITORY CANAL: EAC's normal MOUTH: Normal oral and palatal mucosa present, lip normal and tongue normal Eye: COMMON NORMALS: Equal, round and reactive pupils present and conjunctivae normal GENERAL EYE: appearance normal, both eyes and all related structures ALIGNMENT: Yes alignment normal PERIORBITAL: periorbital findings normal EYELID: eyelids normal CONJUNCTIVA: Yes conjunctivae normal SCLERA: scl erae normal PUPIL: Yes Equal, round and reactive pupils present Neck/C-Spine: COMMON NORMALS: full ROM, no lymphadenopathy, supple, no meningeal signs and no JVD GENERAL: Yes normal visual inspection and Yes trachea midline Chest: COMMONS NORMALS: normal inspection of the chest and normal palpation of entire chest wall Resp: COMMON NORMALS: normal respiratory effort, No retractions and No use of accessory muscles EFFORT & INSPECTION: Yes able to speak in complete sentences and Yes symmetric chest movement AUSCULTATION: no crackles, rales, no rhonchi and no wheezes Cardio: COMMON NORMALS: no JVD, regular rate, regular rhythm, S1 normal heart sound present and S2 normal heart sound present RATE: regular rate RHYTHM: regular rhythm HEART SOUNDS: S1 normal heart sound present, S2 normal heart sound present, no click, no gallops, no murmurs, no rubs and abnormal split S2 GI: COMMON NORMALS: Soft to palpation and No hepatosplenomegaly present PALPATION: Yes Soft to palpation, No Tenderness to palpation present (GI), No Guarding due to palpation present (GI), No Rigid due to palpation, Yes No hepatosplenomegaly present, No Hernia present, No Palpable mass present and No Pulsatile mass present : COMMON NORMALS: Yes no CVA tenderness BLADDER/KIDNEY EXAM: Yes no CVA tenderness Back/Pelvis: COMMON NORMALS: no CVA tenderness, thoracic and lumbar spine normal to inspection, no thoracic nor lumbar tenderness and thoraco-lumbar ROM normal Extremity: COMMON NORMALS: normal to inspection, full ROM, capillary refill normal, no joint enlargement, no clubbing, cyanosis or edema and no calf tenderness Neuro: COMMON NORMALS: patient oriented x3, CN's II-XII intact bilaterally, moves all extremities, no focal motor deficits and no sensory deficits noted MENINGEAL SIGNS: Yes no meningeal signs SPEECH: speech normal Psych: COMMON NORMALS: mental status grossly normal, Normal thought process present, cooperative, normal affect, speech normal and activity/motor behavior normal APPEARANCE: Yes well kempt SPEECH: Yes normal speech THOUGHT PROCESS: Normal thought process present Skin: COMMON NORMALS: no rashes or lesions noted, turgor normal, no jaundice, no petechiae and no mottling GENERAL SKIN EXAM: no rashes or lesions noted and turgor normal Course Vital Signs: Vital signs: Vital Signs Temperature 98.0 F 01/22/20 23:36 Pulse Rate 90 01/23/20 03:33 Respiratory Rate 24 H 01/23/20 03:33 Blood Pressure 101/74 01/23/20 03:33 Pulse Oximetry 97 01/23/20 03:33 MDM - SOB/Dyspnea MDM Narrative: Medical decision making narrative: 199 -EKGs and Case reviewed with Dr. Posadas. She agrees that EKG changes are likely from recent AL. She does not believe there to be a new acute STEMI. Patient is still not having any chest pain and only complains of shortness of breath. He has been given aspirin, 1 inch of nitroglycerin paste, 40 of Lasix and is resting comfortably. CTA of the chest reveals evidence most consistent with pulmonary edema. Were going to go ahead and give the patient a dose of Lovenox here per Dr. Posadas's advice. The patient's first troponin is markedly elevated but when reviewing back to the patient's initial AL back on January 08 his troponin was greater than 10,000. Dr. Posadas agrees that tonight's elevation is likely consistent with acute CHF. If there is significant elevation she would like notified otherwise she would like the patient admitted to the hospitalist service. I have reviewed the case with Dr. Wadsworth and he agrees to come see the patient in the ER. Medical Records: Attestation: I reviewed the patient's medical records. Medical records narrative: Reviewed the patient's history and physical, cath report, 2 echocardiogram reports and discharge summary from his previous admission for AL this month. Lab Data: Attestation: I reviewed the patient's lab results. Labs: Lab Results 01/22/20 01/22/20 01/22/20 Range/Units 23:54 23:54 23:54 WBC 8.9 (4.0-10.0) 10^3/ uL RBC 4.37 (4.1-5.3) 10^6/u L Hgb 12.9 (11.7-16.6) g/dL Hct 39.4 L (42.0-52.0) % MCV 90.2 (80-94) fL MCH 29.5 (28.0-34.0) pg MCHC 32.7 (30.0-36.0) g/dL RDW 13.2 (12.1-15.1) % Plt Count 432 H (130-400) 10^3/c mm MPV 11.4 H (7.4-10.4) fL Neut % (Auto) 74.7 % Lymph % (Auto) 12.4 % [place] % (Auto) 8.4 % Eos % (Auto) 3.4 % Baso % (Auto) 0.7 % Neut # (Auto) 6.7 (1.8-7.7) 10^3/u L Lymph # (Auto) 1.1 (0.8-4.8) 10^3/u L [place] # (Auto) 0.8 (0.2-0.9) 10^3/u L Eos # (Auto) 0.3 (0.0-0.8) 10^3/u L Baso # (Auto) 0.1 (0.0-0.1) 10^3/u L Nucleated RBC % (a uto) 0 % Nucleated RBCs # 0.0 /100WBC PT (10.5-13.3) SECO NDS INR (0.8-1.2) APTT (23.9-36.7) SECO NDS Sodium 139 (136-145) mmol/L Potassium 4.0 (3.5-5.1) mmol/L Chloride 102 (98-107) mmol/L Carbon Dioxide 26 (22-29) mmol/L Anion Gap 15.0 (5-19) BUN 18 (8-23) mg/dL Creatinine 1.2 (0.7-1.2) mg/dL GFR Calculation 60.4 L (90-130) mL/min Glucose 152 H (65-115) mg/dL Calculated Osmolal ity 287 (285-295) mOsm/k g Lactic Acid (0.5-2.2) mmol/L Calcium 9.2 (8.5-10.5) mg/dL Magnesium 2.0 (1.7-2.3) mg/dL Total Bilirubin 0.3 (0.15-1.2) mg/dL AST 19 (0-40) U/L ALT 24 (0-41) U/L Alkaline Phosphata se 105 (40-130) IU/L Troponin T Baselin e 598 H* (0-15) ng/L Troponin T 120 Min [place] (0-15) ng/L Delta Troponin T (0-10) ABS# NT-Pro-B Natriuret Pep (0-125) pg/mL Total Protein 6.8 (6.6-8.7) g/dL Albumin 3.5 (3.5-5.2) g/dL Globulin 3.3 (1.3-4.6) g/dL Urine Color (Yellow) Urine Appearance (CLEAR) Urine pH (5-7) Ur Specific Gravit y (1.005-1.030) Urine Protein (Negative) Urine Glucose (UA) (Normal) Urine Ketones (Negative) Urine Blood (Negative) Urine Nitrate (Negative) Urine Bilirubin (NEGATIVE) Urine Urobilinogen (Negative) mg/dL Ur Leukocyte Lizette ase (Negative) Urine RBC (0-2) /hpf Urine WBC (0-5) /hpf Ur Squamous Epith Cells (0-5) Urine Bacteria (NONE) Influenza Type A A g (Negative) Influenza Type B A g (Negative) 01/22/20 01/23/20 01/23/20 Range/Units 23:54 00:47 00:47 WBC (4.0-10.0) 10^3/ uL RBC (4.1-5.3) 10^6/u L Hgb (11.7-16.6) g/dL Hct (42.0-52.0) % MCV (80-94) fL MCH (28.0-34.0) pg MCHC (30.0-36.0) g/dL RDW (12.1-15.1) % Plt Count (130-400) 10^3/c mm MPV (7.4-10.4) fL Neut % (Auto) % Lymph % (Auto) % [place] % (Auto) % Eos % (Auto) % Baso % (Auto) % Neut # (Auto) (1.8-7.7) 10^3/u L Lymph # (Auto) (0.8-4.8) 10^3/u L [place] # (Auto) (0.2-0.9) 10^3/u L Eos # (Auto) (0.0-0.8) 10^3/u L Baso # (Auto) (0.0-0.1) 10^3/u L Nucleated RBC % (a uto) % Nucleated RBCs # /100WBC PT 14.00 H (10.5-13.3) SECO NDS INR 1.05 (0.8-1.2) APTT 28.7 (23.9-36.7) SECO NDS Sodium (136-145) mmol/L Potassium (3.5-5.1) mmol/L Chloride (98-107) mmol/L Carbon Dioxide (22-29) mmol/L Anion Gap (5-19) BUN (8-23) mg/dL Creatinine (0.7-1.2) mg/dL GFR Calculation (90-130) mL/min Glucose (65-115) mg/dL Calculated Osmolal ity (285-295) mOsm/k g Lactic Acid 1.1 (0.5-2.2) mmol/L Calcium (8.5-10.5) mg/dL Magnesium (1.7-2.3) mg/dL Total Bilirubin (0.15-1.2) mg/dL AST (0-40) U/L ALT (0-41) U/L Alkaline Phosphata se (40-130) IU/L Troponin T Baselin e (0-15) ng/L Troponin T 120 Min [place] (0-15) ng/L Delta Troponin T (0-10) ABS# NT-Pro-B Natriuret Pep 3927 H (0-125) pg/mL Total Protein (6.6-8.7) g/dL Albumin (3.5-5.2) g/dL Globulin (1.3-4.6) g/dL Urine Color (Yellow) Urine Appearance (CLEAR) Urine pH (5-7) Ur Specific Gravit y (1.005-1.030) Urine Protein (Negative) Urine Glucose (UA) (Normal) Urine Ketones (Negative) Urine Blood (Negative) Urine Nitrate (Negative) Urine Bilirubin (NEGATIVE) Urine Urobilinogen (Negative) mg/dL Ur Leukocyte Lizette ase (Negative) Urine RBC (0-2) /hpf Urine WBC (0-5) /hpf Ur Squamous Epith Cells (0-5) Urine Bacteria (NONE) Influenza Type A A g (Negative) Influenza Type B A g (Negative) 01/23/20 01/23/20 01/23/20 Range/Units 00:49 01:30 02:18 WBC (4.0-10.0) 10^3/ uL RBC (4.1-5.3) 10^6/u L Hgb (11.7-16.6) g/dL Hct (42.0-52.0) % MCV (80-94) fL MCH (28.0-34.0) pg MCHC (30.0-36.0) g/dL RDW (12.1-15.1) % Plt Count (130-400) 10^3/c mm MPV (7.4-10.4) fL Neut % (Auto) % Lymph % (Auto) % [place] % (Auto) % Eos % (Auto) % Baso % (Auto) % Neut # (Auto) (1.8-7.7) 10^3/u L Lymph # (Auto) (0.8-4.8) 10^3/u L [place] # (Auto) (0.2-0.9) 10^3/u L Eos # (Auto) (0.0-0.8) 10^3/u L Baso # (Auto) (0.0-0.1) 10^3/u L Nucleated RBC % (a uto) % Nucleated RBCs # /100WBC PT (10.5-13.3) SECO NDS INR (0.8-1.2) APTT (23.9-36.7) SECO NDS Sodium (136-145) mmol/L Potassium (3.5-5.1) mmol/L Chloride (98-107) mmol/L Carbon Dioxide (22-29) mmol/L Anion Gap (5-19) BUN (8-23) mg/dL Creatinine (0.7-1.2) mg/dL GFR Calculation (90-130) mL/min Glucose (65-115) mg/dL Calculated Osmolal ity (285-295) mOsm/k g Lactic Acid (0.5-2.2) mmol/L Calcium (8.5-10.5) mg/dL Magnesium (1.7-2.3) mg/dL Total Bilirubin (0.15-1.2) mg/dL AST (0-40) U/L ALT (0-41) U/L Alkaline Phosphata se (40-130) IU/L Troponin T Baselin e (0-15) ng/L Troponin T 120 Min [place] 538.8 H (0-15) ng/L Delta Troponin T -59.2 L (0-10) ABS# NT-Pro-B Natriuret Pep (0-125) pg/mL Total Protein (6.6-8.7) g/dL Albumin (3.5-5.2) g/dL Globulin (1.3-4.6) g/dL Urine Color Yellow (Yellow) Urine Appearance Clear (CLEAR) Urine pH 5 (5-7) Ur Specific Gravit y 1.015 (1.005-1.030) Urine Protein Neg (Negative) Urine Glucose (UA) Norm (Normal) Urine Ketones Negative (Negative) Urine Blood Neg (Negative) Urine Nitrate Negative (Negative) Urine Bilirubin Neg (NEGATIVE) Urine Urobilinogen Norm (Negative) mg/dL Ur Leukocyte Liz[place] ase Negative (Negative) Urine RBC Rare (0-2) /hpf Urine WBC Rare (0-5) /hpf Ur Squamous Epith Cells Rare (0-5) Urine Bacteria Trace (NONE) Influenza Type A A g Negative (Negative) Influenza Type B A g Negative (Negative) Imaging Data^: CXR: Attestation: I personally reviewed and interpreted this imaging study as follows: My impression: Cardiomegaly with mild pulmonary vascular congestion. EKG Data^: EKG 1: Attestation: I personally reviewed and interpreted this EKG as follows: EKG Interpretation Date: 01/23/20 EKG interpretation time: 00:46 Interpretation: Normal sinus rhythm at 85 beats a minute, Q waves noted in V1 through V4. T wave inversions in 1, aVL V4 and V5. Evidence of recent acute AL. Previous EKG unavailable for interpretation secondary to computer system being down. EKG 2: Attestation: I personally reviewed and interpreted this EKG as follows: EKG Interpretation Date: 01/23/20 EKG interpretation time: 01:57 Interpretation: Normal sinus rhythm at 99 beats a minute, Q waves present V1 through V5, T wave inversions in 1 and aVL. Previous T wave inversions seen in V4 and V5 have resolved. Findings similar to previous EKG from [facility]. Previous EKGs from this month still unavailable for review. 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
[2020-01-23] MEDS: iohexol 350 mg/mL 100 mL Btl IV (01:34)
[2020-01-23] MEDS: piperacillin-tazobactam 3.375 GM in sodium chloride 0.9% (plus) 50 ML IV (01:45)
[2020-01-23] MEDS: FUROsemide 10 mg/mL SDV 4mL 40 MG IVP ×3 (01:49→22:17)
[2020-01-23] MEDS: nitroglycerin 1 gm/inch oint Pkt 1 INCH TOPICAL (01:49)
[2020-01-23 01:58] LABS: Influenza A by IFA Negative (Negative); Influenza B by IFA Negative (Negative)
[2020-01-23 02:06] LABS: Bacteria Urine TRACE; Bilirubin Urine Neg (NEGATIVE); Blood Urine Neg (Negative); Glucose Urine UA Norm (Normal); Ketones Urine Negative (Negative); Leukocyte Esterase Urine Negative (Negative); Nitrate Urine Negative (Negative); Protein Urine Neg (Negative); RBC Urine RARE /hpf (0-2); Specific Gravity, Urine 1.015 (1.005-1.030); Squamous Epithelial Cell Urine RARE (0-5); Urine Appearance Clear (CLEAR); Urine Color Yellow (Yellow); Urobilinogen Urine Norm (Negative); WBC Urine RARE /hpf (0-5); pH Urine 5 (5-7)
--- NOTE | 2020-01-23 02:13 | ECG_ITS ---
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 Measurements Intervals [place] Rate: 88 P: 47 IA: 169 QRS: -80 QRSD: 101 T: 111 QT: 420 QTc: 510 Interpretive Statements SINUS RHYTHM WITH OCCASIONAL VENTRICULAR PREMATURE COMPLEXES LOW QRS VOLTAGE IN EXTREMITY LEADS LEFT ANTERIOR FASCICULAR BLOCK ANTEROLATERAL MYOCARDIAL INFARCTION, PROBABLY RECENT ACUTE ME WARNING: DATA QUALITY MAY AFFECT INTERPRETATION Compared to ECG 01/23/2020 01:57:39 Ventricular premature complex(es) now present Left anterior fascicular block now present Indeterminate axis no longer present Myocardial infarct finding still present Electronically Signed On 01-23-2020 16:32:28 CDT by Ngoc Posadas M.D. [id number]
[2020-01-23 02:39] LABS: Troponin 5 2HR 538.8 ng/L (0-15)
[2020-01-23] MEDS: enoxaparin 80 mg/0.8 mL Syringe 70 MG SUBCUT (02:47)
--- NOTE | 2020-01-23 03:51 | PM.HP ---
Providers/Chief Complaint Primary Care Provider: Yuriy Salazar MD Chief Complaint: congested/sob History of Present Illness Waqar Aparicio is a 69 year old gentleman with coronary artery disease, recent anterior wall STEMI at the beginning of this month, with noted occlusion of LAD, occlusion of ramus intermedius, subsequently 2 stents placed in proximal LAD. Ejection fraction noted 30% with dyskinetic apex. He does report also history of COPD, not oxygen dependent. Tonight around 10 PM he started having suddenly shortness of breath, coughing up blood-tinged sputum. He denies any chest pain or pressure. Does endorse orthopnea. Denies peripheral edema. Last night had chills. No fever. In ER with nonspecific changes on EKG, elevated troponin at 598, but with gradual decline, and this is less than during previous admission with STEMI. He is afebrile, without leukocytosis, with rapid influenza negative. He is being assessed for COVID-19. He is saturating well on 2 L nasal cannula. He has received Lasix. Zosyn. Due to concern for possible non-STEMI received a dose of Lovenox. He is currently feeling somewhat better, although still has intermittent cough, especially with deep inspiration, and still blood-tinged sputum. CTA of the chest did not reveal PE. Findings suggestive pulmonary edema of moderate severity, cannot exclude pulmonary hemorrhage, hypersensitivity pneumonitis or infectious process based on imaging. He reports he has not been taking any diuretics at home. He says that since the last heart attack he has been watching his salt intake. Family members arrived on Monday visiting him from [place]. Review of Systems Const: Denies: fever(s), chills, body aches or malaise Eyes: Denies: change in vision or eye redness ENMT: Denies: throat pain, oral sores or ear or mastoid pain Card: Reports: orthopnea; Denies: chest pain, edema, pre-syncope or dyspnea on exertion Resp: Reports: dyspnea, productive cough and hemoptysis; Denies: change in phlegm color GI: Denies: abdominal pain, nausea, vomiting, diarrhea, constipation, hematochezia or melena : Denies: flank pain, difficulty urinating, urinary frequency or hematuria Musc: Denies: back pain, joint swelling or joint redness Skin/Breast: Denies: rash, sores or new lesions Neuro: Denies: headache(s), numbness in extremities, weakness in extremities, dizziness, confusion or seizure-like activity Endo: Denies: polyuria or polydipsia Vikas/Lymph: Denies: easy bleeding or purpura All/Imm: Denies: urticaria, throat swelling or tongue swelling Medications/Allergies Home Medications Medication Instructions Recorded Confirmed Last Taken Type aspirin 81 mg PO DAILY #90 tab 01/11/20 Unknown Rx atorvastatin 80 mg PO BEDTIME #90 tab 01/11/20 01/20/20 Unknown Rx clopidogrel 75 mg PO DAILY #90 tab 01/11/20 01/20/20 Unknown Rx nitroglycerin [Nitrostat] 0.4 mg SUBLINGUAL Q5M PRN #30 tab 01/11/20 01/20/20 Unknown Rx pantoprazole [Protonix] 40 mg PO DAILY 28 Days tab 01/11/20 01/20/20 Unknown Rx lisinopril 10 mg tablet 2.5 mg PO DAILY #90 tab 01/15/20 01/20/20 Unknown Rx metoprolol tartrate 50 mg tablet 25 mg PO BID #60 tab 01/15/20 01/20/20 Unknown Rx Allergies Allergy/AdvReac Type Severity Reaction Status Date / Time No Known Allergies Allergy Verified 01/09/20 14:20 PFSH Acute PFSH: Medical History (Updated 01/23/20 @ 04:17 by New Wadsworth MD) Chronic GERD Coronary artery disease Essential hypertension Hyperlipidemia Surgical History S/P coronary artery stent placement Family History Brother CAD (coronary artery disease) Family history of premature coronary artery disease Hypertension Mother Hypertension Sister Hypertension Grandfather Stroke Denies family history of Diabetes Clotting disorder Dementia Hyperlipidemia Psychiatric illness Chronic kidney disease (CKD) Suicide Anesthesia complication Bleeding disorder Lung disease Cancer Social History Smoking and tobacco status: former smoker Alcohol intake: current Alcohol intake frequency: holidays/special occasions only Substance/Drug Use: never Household members: spouse Marital status: Current occupational status: retired Vitals/I&O/Wt Last Vital Signs Temp 98.0 F 01/22/20 23:36 Pulse 90 01/23/20 03:33 Resp 24 H 01/23/20 03:33 BP 101/74 01/23/20 03:33 Pulse Ox 97 01/23/20 03:33 01/22/20 01/22/20 01/23/20 14:59 22:59 06:59 Output Total 850 / 850 Balance -850 / -850 Weight last 48 hrs Weight 106.594 kg Physical Exam Const: COMMON NORMALS: no acute distress and patient oriented x3 HENMT: COMMON NORMALS: oropharynx normal Neck/C-Spine: COMMON NORMALS: no JVD Resp: COMMON NORMALS: normal respiratory effort AUSCULTATION: diminished lung sounds Cardio: COMMON NORMALS: no JVD, regular rhythm, S1 normal heart sound present, S2 normal heart sound present and No murmurs present (Cardio) RHYTHM: regular rhythm HEART SOUNDS: S1 normal heart sound present and S2 normal heart sound present GI: COMMON NORMALS: Normal to inspection, nondistended, normoactive bowel sounds present, Soft to palpation and non-tender PALPATION: Yes Soft to palpation Extremity: COMMON NORMALS: no joint enlargement and no pedal edema Neuro: COMMON NORMALS: patient oriented x3 and moves all extremities Skin: COMMON NORMALS: no rashes or lesions noted GENERAL SKIN EXAM: no rashes or lesions noted Data : 01/22/20 23:54 01/22/20 23:54 Micro: Microbiology 01/23/20 00:47 Blood Culture - Preliminary Blood SPECIMEN COLLECTED 01/23/20 00:47 Blood Culture - Preliminary Blood SPECIMEN COLLECTED A&P Assessment and plan (1) Dyspnea: This appears to be secondary pulmonary edema, with somewhat sudden onset, possibly flash pulmonary edema of unclear etiology. He has had STEMI earlier this month, with placement of 2 stents in LAD. At that time noted ejection fraction was 35% and so does have known congestive heart failure. He says has not been taking diuretics at home. Says has been trying to watch his salt intake. At the same time blood-tinged sputum. Concern is possibly for bland pulmonary hemorrhage, perhaps secondary to CHF, possibly acute valvular disease given recent TN. Due to concern for possible structural problems will assess by limited TTE. Does also take plavix and ASA. No PE noted on CTA. Nonspecific edema noted. He is being assessed for COVID-19. Rapid flu was negative. Overall does not appear infectious as he is afebrile, without leukocytosis, tachycardia or other signs of sepsis. Incidentally did have brief episode of chills. For now as we do not have convincing evidence that this is a pneumonia we will hold off antibiotics. Will check procalcitonin. Status: Acute (2) CHF exacerbation: Systolic congestive heart failure acute exacerbation. With acute shortness of breath, orthopnea. Received 40 mg Lasix in ER. At this time will continue 40 mg IV twice daily. Monitor I&O, volume status. Complete troponin EKG series to exclude recurrence of cardiac ischemia. Continue CELESTINE inhibitor. Continue CAD medications. Status: Acute (3) Pulmonary edema: As above. He also does mention that perhaps may have sleep apnea as noted by his , although never has been tested. Consider referral for sleep study on discharge. Status: Acute (4) Hemoptysis: Etiology of this is not entirely clear. Does appear to have some cough triggered by deep inspiration, possibly secondary to the pulmonary edema. Nonspecific edema noted on CT. Overall from clinical presentation apart from chills, does not appear to to have convincing signs of infectious etiology. Still given dyspnea, chills, and family members visiting from [place] who arrived on Monday, will be assessed for COVID-19. No PE noted on CT chest. Concerns possibly for bland pulmonary hemorrhage secondary to CHF, possibly with structural abnormality given recent STEMI, in the setting also of Plavix and aspirin treatment. Received 1 dose of Lovenox due to concern for possible non-STEMI. For now will not continue. Monitor clinical course, consult with cardiology with regards to possible non-STEMI, although troponins appear to be trending down, and were as high as 9000 during last admission with STEMI 2 weeks ago. Check ESR, CRP, although autoimmune causes probably less likely. At this time is being admitted to ICU. Depending on clinical course could consider assessment by pulmonology. Status: Acute (5) Elevated troponin: With recent STEMI. Presented today with sudden onset shortness of breath. Denies chest pain or pressure. Nonspecific changes on EKG. Initially concern for non-STEMI given level of elevation, however, with gradual decline, and 2 weeks ago troponin was above 9000. Suspect this may be still gradual downtrend from prior. For now hold off on additional Lovenox given hemoptysis. Complete troponin EKG series. Limited TTE. Appreciate cardiology assessment. Status: Acute (6) Coronary artery disease: Continue medications. Status: Acute Attestations Medical Necessity Statement*: Admission of over 2 midnights is going to be needed for assessment and management of dyspnea, pulmonary edema, CHF exacerbation, abnormal troponin in setting of recent STEMI. 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
[2020-01-23 05:51] LABS: Procalcitonin 0.05 ng/mL (0-0.5)
--- NOTE | 2020-01-23 06:13 | ECG_ITS ---
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 Measurements Intervals [place] Rate: 99 P: 58 MT: 179 QRS: -21 QRSD: 93 T: 116 QT: 366 QTc: 470 Interpretive Statements SINUS RHYTHM INDETERMINATE AXIS LOW QRS VOLTAGE [QRS DEFLECTION < 0.5/1.0 mV IN LIMB/CHEST LEADS] POSSIBLE INFERIOR MYOCARDIAL INFARCTION [30 ms Q WAVE IN II/aVF], PROBABLY OLD ANTEROLATERAL MYOCARDIAL INFARCTION [40+ ms Q WAVE IN I/aVL/V3-V6], PROBABLY RECENT ACUTE DE WARNING: DATA QUALITY MAY AFFECT INTERPRETATION Compared to ECG 01/10/2020 05:40:33 Indeterminate axis now present Myocardial infarct finding still present Electronically Signed On 01-23-2020 16:33:22 CDT by Ngoc Posadas M.D. [id number]
[2020-01-23 06:25] LABS: Amphetamines Screen Urine Negative (Negative); Barbiturates Screen Urine Negative (Negative); Benzodiazepines Screen Urine Negative (Negative); Cocaine Screen Urine Negative (Negative); Opiate Screen Urine Negative (Negative); PCP Screen Urine Negative (Negative); THC Screen Urine Negative (Negative)
[2020-01-23 06:34] LABS: Troponin 5 6HR 523.4 ng/L (0-15)
--- NOTE | 2020-01-23 06:54 | PC.NURSE ---
Lab called critical 6 hour troponin of 523. Dr. Johnson notified. No new orders at this time.
--- NOTE | 2020-01-23 07:56 | PC.NURSE ---
Patient given a sputum cup to collect fresh sputum to show doctor.
--- NOTE | 2020-01-23 08:14 | P.CONIM_ITS ---
Providers/Reason For Consult Consulting Physican/Specialty*: Dr. Posadas, Cardiology Reason for Consult*: SOB, elevated troponin and recent STEMI Attending Physician: Hazel Villafuerte MD Primary Care Provider: Yuriy Salazar MD History of Present Illness History of Present Illness Waqar Aparicio is a 69 year old male with past medical history of hypertension, hyperlipidemia, COPD and recently was in the hospital with anterior wall ST elevation PA. He was found to have occlusion of LAD and underwent drug eluting stent placement x 2 to proximal LAD. He was also diagnosed with ischemic cardiomyopathy with ejection fraction of 30% with dyskinetic apex. Yesterday night, he developed sudden onset shortness of breath and coughing up blood-tinged sputum. He denies any chest pain or pressure. +orthopnea, no peripheral edema or fever. In ER with his baseline troponin T was 598 and decreased since then and when compared to previous admission with STEMI (>10.000). He received Lasix and diuresed well. Zosyn. CTA of the chest did not reveal PE. Findings suggestive pulmonary edema of moderate severity, cannot exclude pulmonary hemorrhage, hypersensitivity pneumonitis or infectious process on imaging. I have been asked to evaluate him given elevated troponin and pulmonary edema. No acute events overnight. Review of Systems Const: Denies: fever(s), chills, body aches or malaise ENMT: Denies: throat pain Card: Reports: orthopnea; Denies: chest pain, edema, pre-syncope or dyspnea on exertion Resp: Reports: dyspnea, productive cough and hemoptysis; Denies: change in phlegm color GI: Denies: abdominal pain, nausea, vomiting, diarrhea, constipation, hematochezia or melena : Denies: difficulty urinating, urinary frequency or hematuria Musc: Denies: joint swelling or joint redness Skin/Breast: Denies: rash, sores or new lesions Neuro: Denies: headache(s), weakness in extremities, dizziness or confusion Endo: Denies: polyuria or polydipsia Vikas/Lymph: Denies: easy bleeding or purpura All/Imm: Denies: throat swelling or tongue swelling Meds/Allergies Home Medications and Allergies Home Medications Medication Instructions Recorded Confirmed Last Taken Type aspirin 81 mg PO DAILY #90 tab 01/11/20 Unknown Rx atorvastatin 80 mg PO BEDTIME #90 tab 01/11/20 01/20/20 Unknown Rx clopidogrel 75 mg PO DAILY #90 tab 01/11/20 01/20/20 Unknown Rx nitroglycerin [Nitrostat] 0.4 mg SUBLINGUAL Q5M PRN #30 tab 01/11/20 01/20/20 Unknown Rx pantoprazole [Protonix] 40 mg PO DAILY 28 Days tab 01/11/20 01/20/20 Unknown Rx lisinopril 10 mg tablet 2.5 mg PO DAILY #90 tab 01/15/20 01/20/20 Unknown Rx metoprolol tartrate 50 mg tablet 25 mg PO BID #60 tab 01/15/20 01/20/20 Unknown Rx Allergies Allergy/AdvReac Type Severity Reaction Status Date / Time No Known Allergies Allergy Verified 01/09/20 14:20 PFSH Acute PFSH: Medical History Chronic GERD Coronary artery disease Essential hypertension Hyperlipidemia Surgical History S/P coronary artery stent placement Family History Brother CAD (coronary artery disease) Family history of premature coronary artery disease Hypertension Mother Hypertension Sister Hypertension Grandfather Stroke Denies family history of Diabetes Clotting disorder Dementia Hyperlipidemia Psychiatric illness Chronic kidney disease (CKD) Suicide Anesthesia complication Bleeding disorder Lung disease Cancer Social History Smoking and tobacco status: former smoker Alcohol intake: current Alcohol intake frequency: holidays/special occasions only Substance/Drug Use: never Household members: spouse Marital status: Current occupational status: retired Vitals/I&O/Wt Last Vital Signs Temp 98.1 F 01/23/20 06:04 Pulse 90 01/23/20 06:04 Resp 10 L 01/23/20 06:04 BP 121/78 01/23/20 06:04 Pulse Ox 97 01/23/20 06:04 01/22/20 01/23/20 01/23/20 22:59 06:59 14:59 Output Total 2150 / 2150 Balance -2150 / -2150 Weight last 48 hrs Weight 227 lb 4 oz Weight 235 lb Physical Exam Const: COMMON NORMALS: no acute distress and patient oriented x3 HENMT: COMMON NORMALS: normocephalic and atraumatic HEAD & SCALP: normocephalic and atraumatic Neck/C-Spine: COMMON NORMALS: no JVD Resp: COMMON NORMALS: normal respiratory effort AUSCULTATION: diminished lung sounds (bilateral bases) Cardio: COMMON NORMALS: no JVD, regular rhythm, S1 normal heart sound present, S2 normal heart sound present and No murmurs present (Cardio) RHYTHM: regular rhythm HEART SOUNDS: S1 normal heart sound present and S2 normal heart sound present GI: COMMON NORMALS: Normal to inspection, nondistended, normoactive bowel sounds present, Soft to palpation and non-tender PALPATION: Yes Soft to palpation Extremity: COMMON NORMALS: no joint enlargement and no pedal edema Neuro: COMMON NORMALS: patient oriented x3 and moves all extremities Skin: COMMON NORMALS: no rashes or lesions noted GENERAL SKIN EXAM: no rashes or lesions noted Data Labs: Other Labs: Laboratory Tests 01/22/20 01/22/20 01/23/20 23:54 23:54 02:18 Troponin I 6 Hour Troponin T Baselin e 598 H* Troponin T 120 Min [place] 538.8 H NT-Pro-B Natriuret Pep 3927 H 01/23/20 05:54 Troponin I 6 Hour 523.4 H Troponin T Baselin e Troponin T 120 Min [place] NT-Pro-B Natriuret Pep Micro: Micro: Microbiology 01/23/20 00:47 Blood Culture - Pr eliminary Blood SPECIMEN [facility] 01/23/20 00:47 Blood Culture - Pr eliminary Blood SPECIMEN [facility] Imaging^: Echo: Radiologist's impression: (01/11/20) CONCLUSIONS 1-Mildly increased left ventricular cavity size. Severely decreased left ventricular systolic function. Left ventricular ejection fraction is estimated at 36 %. There appeared to be mid to distal anterior septal and apical akinesis. Grade I/IV diastolic dysfunction (abnormal relaxation filling pattern), normal to mildly elevated filling pressures. There appeared to be hazy structure in the apex of left ventricle suspicious for LV thrombus. Due to suboptimal quality study contrast echo is suggested to rule out thrombus.. 2-Moderately thickened mitral valve. No mitral valve stenosis. Moderate mitral valve regurgitation. 3-Mild tricuspid valve regurgitation. 4-There is no pericardial effusion. 5-Pulmonary artery systolic pressure is within normal limits. 6-Right atrial pressure is around 5 mm of mercury. 7-There are no prior echocardiogram studies to compare. CTA Chest: Radiologist's impression: (01/23/20) IMPRESSION: 1. No pulmonary emboli identified. 2. Findings suggesting pulmonary edema of moderate severity. Pulmonary hemorrhage, hypersensitivity pneumonitis, and infectious process (especially opportunistic) could be coexisting. 3. Small bilateral pleural effusions. 4. Small pericardial effusion. CXR: Radiologist's impression: (01/23/20) IMPRESSION: Cardiomegaly Chronic interstitial findings. Coronary angiogram (01/09/20): Radiologist's impression: Conclusions Acute anterior wall PA with occluded LAD treated with angioplasty and stent and uatsdin of flow. Occluded ramus intermedius branch. Significant left ventricular dysfunction in the distribution of the LAD. Ejection fraction 30% with dyskinetic apex. A&P Assessment and plan (1) CHF exacerbation: Not on diuretics at home. currently on lasix 40 mg IV twice a day; continue to closely monitor I?O and daily weight -on low dose lisinopril. transition to metoprolol succinate. Status: Acute Qualifiers: Heart failure type: systolic Qualified Code(s): I50.23 - Acute on chronic systolic (congestive) heart failure (2) Elevated troponin: NSTEMI type 2 in setting of decompensated CHF Status: Acute (3) Pulmonary edema: Status: Acute Qualifiers: Chronicity: acute Qualified Code(s): J81.0 - Acute pulmonary edema (4) Coronary artery disease: recent stent, continue DAPT, statin and beta bg Status: Acute Qualifiers: Associated angina: without angina Coronary Disease-Associated Artery/Lesion type: [place] artery [place] vs. transplanted heart: [place] heart Qualified Code(s): I25.10 - Atherosclerotic heart disease of [place] coronary artery without angina pectoris (5) Hyperlipidemia: on statin Status: Acute Qualifiers: Hyperlipidemia type: mixed hyperlipidemia Qualified Code(s): E78.2 - Mixed hyperlipidemia Additional A&P Information Thank you for allowing me to participate in patient's care. Please feel free to call with questions or concerns. Consult Attestations Medical Necessity Statement: Needs hospital stay for decompensated CHF. 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 transplanted heart: [place] heart Hyperlipidemia E78.2 Hyperlipidemia type: mixed hyperlipidemia
[2020-01-23] MEDS: aspirin 81 mg EC Tablet PO (08:50)
[2020-01-23] MEDS: lisinopril 5 mg Tablet 2.5 MG PO (08:50)
[2020-01-23] MEDS: pantoprazole DR 40 mg Tablet PO (08:50)
[2020-01-23] MEDS: clopidogrel 75 mg Tablet PO (08:50)
[2020-01-23] MEDS: metoprolol tartrate 25 mg Tablet PO ×2 (08:50→17:14)
--- NOTE | 2020-01-23 11:01 | PC.NURSE ---
Patient's BP was 82/53. Removed nitropaste from chest and wiped clean. Held [address]ix dose. Reported to Dr. Villafuerte. Patient has no complaints, drinking water and coffee and denies any SOB or pain.
--- NOTE | 2020-01-23 14:55 | PC.NURSE ---
Patient offered oral hygiene and a bath and patient declined. States he might try later.
[2020-01-23 17:20] LABS: Coronavirus Lab Test PTC N
--- NOTE | 2020-01-23 17:34 | PM.PN ---
Subjective Subjective: Interval history: Overnight labs H&P reviewed. Patient is currently comfortable at the time of examination. Currently on nasal cannula 2 L/min. He remains afebrile. COVID-19 testing has resulted negative.Net negative 2.4L. Weight 106--> 103. Medications: Reviewed: Yes Vitals/I&O/Wt Last Vital Signs Temp 97.2 F L 01/23/20 15:57 Pulse 97 01/23/20 15:57 Resp 14 01/23/20 15:57 BP 114/71 01/23/20 15:57 Pulse Ox 97 01/23/20 15:57 01/23/20 01/23/20 01/23/20 06:59 14:59 22:59 Intake Total 400 / 400 225 / 625 Output Total 2150 / 2150 900 / 900 Balance -2150 / -2150 -500 / -500 225 / -275 Weight last 48 hrs Weight 103.079 kg Weight 106.594 kg Physical Exam Narrative: EXAM NARRATIVE: GEN: Awake, alert and oriented, no acute distress CVS: S1S2 N RS: CTA B/L Abd: Soft, nt/nd , bs+ ONLINE MARKETING ANALYST: no focal neuro deficits Data : 01/22/20 23:54 01/22/20 23:54 Micro: Microbiology 01/23/20 00:47 Blood Culture - Preliminary Blood SPECIMEN COLLECTED 01/23/20 00:47 Blood Culture - Preliminary Blood SPECIMEN COLLECTED A&P Assessment and plan (1) Dyspnea: - This appears to be secondary pulmonary edema, with somewhat sudden onset, possibly flash pulmonary edema of unclear etiology. - Likely related to cardiogenic causes given that he has had STEMI earlier this month, with placement of 2 stents in LAD. - Last known EF 35%, he has not been taking diuretics at home. Repeat Echo pending at this time - Ct chest without any gross consolidation, procal negative. No evidence of PE. - Negative for COVID-19 and Rapid flu -Underlying COPD may be contributing Status: Acute (2) CHF exacerbation: Systolic congestive heart failure acute exacerbation. With acute shortness of breath, orthopnea. Received 40 mg Lasix in ER. At this time will continue 40 mg IV twice daily. Monitor I&O, daily weights Net negative 2.4 L today Continue CELESTINE inhibitor. Continue CAD medications. Troponin lower than previous admission, doubt ACS currently Status: Acute (3) Pulmonary edema: As above. He also does mention that perhaps may have sleep apnea as noted by his , although never has been tested. Consider referral for sleep study on discharge. Status: Acute (4) Hemoptysis: Likely related to CHF as above Status: Acute (5) Elevated troponin: With recent STEMI. Nonspecific changes on EKG. Initially concern for non-STEMI given level of elevation, however, with gradual Appreciate cardiology assessment. Status: Acute (6) Coronary artery disease: Continue ASA, plavix, metoprolol, lisinopril, statin Status: Acute Attestations Medical Necessity Statement*: Ongoing management of CHF exacerbation, optimization of respiratory status Coding Level of Care Code Acute Title Closer for [facility] Fwd Diagnoses Dyspnea R06.00 CHF exacerbation I50.9 Pulmonary edema J81.1 Hemoptysis R04.2 Elevated troponin R79.89 Coronary artery disease I25.10
--- NOTE | 2020-01-23 18:25 | PC.NURSE ---
Patient states he feel better today and denies any shortness of breath. Patient's O2 sat 97-98% on 1.5 l of O2. Patient instructed to take daily wt same time everyday and record the wt. Notify doctor if any significant increase of wt, sob, difficulty breathing during or after activity. Patient verbalized understanding.
[2020-01-23] MEDS: atorvastatin 40 mg Tablet 80 MG PO (21:49)
[2020-01-24] VITALS (17 sets, daily range): BP systolic 98–129; BP diastolic 62–88; PULSE 66–97; RESP 9–21; TEMP 36.7; O2SAT 82–97
[2020-01-24 04:22] LABS: Basophils # 0.1 10^3/uL (0.0-0.1); Basophils % 1.1 %; Eosinophils # 0.4 10^3/uL (0.0-0.8); Eosinophils % 4.6 %; Hematocrit 40.2 % (42.0-52.0); Hemoglobin 12.9 g/dL (11.7-16.6); Lymphocytes # 1.8 10^3/uL (0.8-4.8); Lymphocytes % 24.1 %; Mean Corpuscular HGB Conc 32.1 g/dL (30.0-36.0); Mean Corpuscular Hemoglobin 29.5 pg (28.0-34.0); Mean Platelet Volume 11.5 fL (7.4-10.4); Monocytes # 0.8 10^3/uL (0.2-0.9); Monocytes % 10.3 %; Neutrophils # 4.5 10^3/uL (1.8-7.7); Neutrophils % 59.5 %; Nucleated Red Blood Cells % 0 %; Platelet Count 389 10^3/cmm (130-400); Red Blood Count 4.37 10^6/uL (4.1-5.3); Red Cell Distribution Width 13.2 % (12.1-15.1); White Blood Count 7.5 10^3/uL (4.0-10.0)
[2020-01-24 04:41] LABS: Anion Gap 13.7 (5-19); Blood Urea Nitrogen 19 mg/dL (8-23); Calcium 9.3 mg/dL (8.5-10.5); Carbon Dioxide 31 mmol/L (22-29); Chloride 100 mmol/L (98-107); Glomerular Filtration Rate 50.5 mL/min (90-130); Glucose 116 mg/dL (65-115); Osmolality Calculated 289 mOsm/kg (285-295); Potassium 3.7 mmol/L (3.5-5.1); Sodium 141 mmol/L (136-145)
--- NOTE | 2020-01-24 08:01 | PM.PN ---
Subjective Subjective: Interval history: Feels better, no complaints this morning. He would like to go home. -2.1 L from yesterday and -4.2 L from admission. Medications: Reviewed: Yes Medication Review Details: Current Medications Acetaminophen (Tylenol) 650 mg PO Q6H PRN PRN Reason: Mild/Mod Pain Or Temp >/= 101 Albuterol/Ipratropium (Duoneb) 3 ml INHALATION Q4H PRN PRN Reason: SHORTNESS OF BREATH Aspirin (Aspirin Ec) 81 mg PO DAILY [facility] Last Admin: 01/24/20 10:35 Dose: 81 mg Documented by: Atorvastatin Calcium (Lipitor) 80 mg PO BEDTIME [facility] Last Admin: 01/23/20 21:49 Dose: 80 mg Documented by: Clopidogrel Bisulfate (Plavix) 75 mg PO DAILY [facility] Last Admin: 01/24/20 10:35 Dose: 75 mg Documented by: Furosemide (Lasix) 40 mg IVP Q12H [facility] Last Admin: 01/24/20 10:30 Dose: 40 mg Documented by: Lisinopril (Prinivil) 2.5 mg PO DAILY [facility] Last Admin: 01/24/20 10:35 Dose: 2.5 mg Documented by: Metoprolol Tartrate (Lopressor) 25 mg PO BID [facility] Last Admin: 01/24/20 10:35 Dose: 25 mg Documented by: Morphine Sulfate (Morphine) 4 mg IVP Q4H PRN PRN Reason: SEVERE PAIN Ondansetron HCl (Zofran) 4 mg PO Q8H PRN PRN Reason: NAUSEA AND VOMITING Pantoprazole Sodium (Protonix) 40 mg PO DAILY [facility] Last Admin: 01/24/20 10:36 Dose: 40 mg Documented by: Vitals/I&O/Wt Last Vital Signs Temp 97.8 F 01/23/20 20:17 Pulse 68 01/24/20 06:00 Resp 10 L 01/24/20 06:00 BP 123/82 01/24/20 06:00 Pulse Ox 95 01/24/20 04:00 01/23/20 01/24/20 01/24/20 22:59 06:59 14:59 Intake Total 225 / 625 Output Total 875 / 1775 950 / 2725 Balance -650 / -1150 -950 / -2100 Cumulative I&O 01/22/20 23:30 thru 01/24/20 06:00 Intake Total 625 Output Total 4875 Balance -4250 Weight last 48 hrs Weight 230 lb 3 oz Weight 227 lb 4 oz Weight 235 lb Physical Exam Const: COMMON NORMALS: no acute distress and patient oriented x3 HENMT: COMMON NORMALS: normocephalic and atraumatic HEAD & SCALP: normocephalic and atraumatic Neck/C-Spine: COMMON NORMALS: no JVD Resp: COMMON NORMALS: normal respiratory effort AUSCULTATION: no crackles, no rales, no wheezes and diminished lung sounds bilateral (bases) Cardio: COMMON NORMALS: no JVD, regular rhythm, S1 normal heart sound present, S2 normal heart sound present and No murmurs present (Cardio) RHYTHM: regular rhythm HEART SOUNDS: S1 normal heart sound present and S2 normal heart sound present Extremity: COMMON NORMALS: no joint enlargement and no pedal edema Neuro: COMMON NORMALS: patient oriented x3 and moves all extremities Skin: COMMON NORMALS: no rashes or lesions noted GENERAL SKIN EXAM: no rashes or lesions noted Data : 01/24/20 03:45 01/24/20 03:45 Micro: Microbiology 01/23/20 00:47 Blood Culture - Preliminary Blood NEGATIVE TO DATE 01/23/20 00:47 Blood Culture - Preliminary Blood NEGATIVE TO DATE A&P Assessment and plan (1) CHF exacerbation: Not on diuretics at home. currently on lasix 40 mg IV twice a day; continue to closely monitor I/O and daily weight -on low dose lisinopril. transition to metoprolol succinate. -transition to PO lasix 40 mg daily starting tomorrow. Hold off on evening dose of lasix. Status: Acute Qualifiers: Heart failure type: systolic Qualified Code(s): I50.23 - Acute on chronic systolic (congestive) heart failure (2) Elevated troponin: NSTEMI type 2 in setting of decompensated CHF Status: Acute (3) Pulmonary edema: resolevd with diuresis. Status: Acute Qualifiers: Chronicity: acute Qualified Code(s): J81.0 - Acute pulmonary edema (4) Coronary artery disease: recent LAD stent, continue DAPT, statin and beta bg Status: Acute Qualifiers: Coronary Disease-Associated Artery/Lesion type: [place] artery [place] vs. transplanted heart: [place] heart Associated angina: without angina Qualified Code(s): I25.10 - Atherosclerotic heart disease of [place] coronary artery without angina pectoris (5) Hyperlipidemia: on statin Status: Acute Qualifiers: Hyperlipidemia type: mixed hyperlipidemia Qualified Code(s): E78.2 - Mixed hyperlipidemia Additional A&P Information Thank you for allowing me to participate in patient's care. Please feel free to call with questions or concerns. Attestations Medical Necessity Statement*: Hospital stay for decompensated CHF Coding Level of Care Code Acute Medical Information Officer for [facility] Fwd Diagnoses CHF exacerbation I50.23 Heart failure type: systolic Elevated troponin R79.89 Pulmonary edema J81.0 Chronicity: acute Coronary artery disease I25.10 Coronary Disease-Associated Artery/Lesion type: [place] artery [place] vs. transplanted heart: [place] heart Associated angina: without angina Hyperlipidemia E78.2 Hyperlipidemia type: mixed hyperlipidemia
[2020-01-24] MEDS: FUROsemide 10 mg/mL SDV 4mL 40 MG IVP (10:30)
[2020-01-24] MEDS: lisinopril 5 mg Tablet 2.5 MG PO (10:35)
[2020-01-24] MEDS: aspirin 81 mg EC Tablet PO (10:35)
[2020-01-24] MEDS: metoprolol tartrate 25 mg Tablet PO ×2 (10:35→17:27)
[2020-01-24] MEDS: clopidogrel 75 mg Tablet PO (10:35)
[2020-01-24] MEDS: pantoprazole DR 40 mg Tablet PO (10:36)
--- NOTE | 2020-01-24 13:54 | PM.PN ---
Subjective Subjective: Interval history: no new complaints feels well overall, net negative 2.4L, daily weight inc 1kg. Medications: Reviewed: Yes Medication Review Details: Current Medications Acetaminophen (Tylenol) 650 mg PO Q6H PRN PRN Reason: Mild/Mod Pain Or Temp >/= 101 Albuterol/Ipratropium (Duoneb) 3 ml INHALATION Q4H PRN PRN Reason: SHORTNESS OF BREATH Aspirin (Aspirin Ec) 81 mg PO DAILY [facility] Last Admin: 01/24/20 10:35 Dose: 81 mg Documented by: Atorvastatin Calcium (Lipitor) 80 mg PO BEDTIME [facility] Last Admin: 01/23/20 21:49 Dose: 80 mg Documented by: Clopidogrel Bisulfate (Plavix) 75 mg PO DAILY [facility] Last Admin: 01/24/20 10:35 Dose: 75 mg Documented by: Furosemide (Lasix) 40 mg IVP Q12H [facility] Last Admin: 01/24/20 10:30 Dose: 40 mg Documented by: Lisinopril (Prinivil) 2.5 mg PO DAILY [facility] Last Admin: 01/24/20 10:35 Dose: 2.5 mg Documented by: Metoprolol Tartrate (Lopressor) 25 mg PO BID [facility] Last Admin: 01/24/20 10:35 Dose: 25 mg Documented by: Morphine Sulfate (Morphine) 4 mg IVP Q4H PRN PRN Reason: SEVERE PAIN Ondansetron HCl (Zofran) 4 mg PO Q8H PRN PRN Reason: NAUSEA AND VOMITING Pantoprazole Sodium (Protonix) 40 mg PO DAILY [facility] Last Admin: 01/24/20 10:36 Dose: 40 mg Documented by: Vitals/I&O/Wt Last Vital Signs Temp 97.8 F 01/23/20 20:17 Pulse 91 01/24/20 10:00 Resp 18 01/24/20 10:00 BP 110/65 01/24/20 10:00 Pulse Ox 95 01/24/20 04:00 01/23/20 01/24/20 01/24/20 22:59 06:59 14:59 Intake Total 225 / 625 240 / 240 Output Total 875 / 1775 950 / 2725 1075 / 1075 Balance -650 / -1150 -950 / -2100 -835 / -835 Weight last 48 hrs Weight 104.411 kg Weight 103.079 kg Weight 106.594 kg Physical Exam Narrative: EXAM NARRATIVE: GEN: Awake, alert and oriented, no acute distress CVS: S1S2 N RS: CTA B/L Abd: Soft, nt/nd , bs+ MEDICAL CENTER MANAGER: no focal neuro deficits Data : 01/24/20 03:45 01/24/20 03:45 Micro: Microbiology 01/23/20 00:47 Blood Culture - Preliminary Blood NEGATIVE TO DATE 01/23/20 00:47 Blood Culture - Preliminary Blood NEGATIVE TO DATE A&P Assessment and plan (1) Dyspnea: - This appears to be secondary pulmonary edema, with somewhat sudden onset, possibly flash pulmonary edema - Likely related to cardiogenic causes given that he has had STEMI earlier this month, with placement of 2 stents in LAD. - Last known EF 35%, he has not been taking diuretics at home. Repeat Echo pending - Ct chest without any gross consolidation, procal negative. No evidence of PE. - Negative for COVID-19 and Rapid flu -Underlying COPD may be contributing -current;opal diuresing well with iv lasix, transition to po lasix in morning tomorrow Status: Acute (2) CHF exacerbation: Systolic congestive heart failure acute exacerbation. With acute shortness of breath, orthopnea. Received 40 mg Lasix in ER. At this time will continue 40 mg IV twice daily. Monitor I&O, daily weights Net negative 2.4 L today Continue CELESTINE inhibitor. Continue CAD medications. Troponin lower than previous admission, doubt ACS currently Status: Acute Qualifiers: Heart failure type: systolic Qualified Code(s): I50.23 - Acute on chronic systolic (congestive) heart failure (3) Pulmonary edema: As above. He also does mention that perhaps may have sleep apnea as noted by his , although never has been tested. Status: Acute Qualifiers: Chronicity: acute Qualified Code(s): J81.0 - Acute pulmonary edema (4) Hemoptysis: Likely related to CHF as above Status: Acute (5) Elevated troponin: With recent STEMI. Nonspecific changes on EKG. Initially concern for non-STEMI given level of elevation, however, with gradual Appreciate cardiology assessment. Status: Acute (6) Coronary artery disease: Continue ASA, plavix, metoprolol, lisinopril, statin Status: Acute Qualifiers: Coronary Disease-Associated Artery/Lesion type: [place] artery [place] vs. transplanted heart: [place] heart Associated angina: without angina Qualified Code(s): I25.10 - Atherosclerotic heart disease of [place] coronary artery without angina pectoris Attestations Medical Necessity Statement*: upcoming discharge in the next 24 hrs if continues to be stable with titrating down diuretics Coding Level of Care Code Acute School Age Program Associate for [place] Fwd Diagnoses Dyspnea R06.00 CHF exacerbation I50.23 Heart failure type: systolic Pulmonary edema J81.0 Chronicity: acute Hemoptysis R04.2 Elevated troponin R79.89 Coronary artery disease I25.10 Coronary Disease-Associated Artery/Lesion type: [place] artery [place] vs. transplanted heart: [place] heart Associated angina: without angina
--- NOTE | 2020-01-24 15:55 | PC.NURSE ---
DR OZUNA CALLED TO INFORM THIS NURSE OF MEDICATION CHANGES FOR TOMORROW. SHE STATED SHE WANTED LASIX 40 MG GIVEN PO OF 01/25/20 AND METOPROLOL SUCCINATE 50 MG PO.
--- NOTE | 2020-01-24 17:24 | PC.NURSE ---
Clarified orders discussed in report with Dr tay instructions to give metoprolol tatrate as scheduled tonight and start metoprolol succinate 50 mg starting in the morning
[2020-01-24] MEDS: atorvastatin 40 mg Tablet 80 MG PO (20:26)
--- NOTE | 2020-01-24 20:30 | PC.NURSE ---
Received shift report from STEFFANIE Mccoy. Pt resting comfortably in bed with no complaints or needs at this time. See nursing assessment. WIll continue to monitor.
[2020-01-25] VITALS (7 sets, daily range): BP systolic 82–119; BP diastolic 50–74; PULSE 67–82; RESP 12–18; TEMP 36.4–36.8; O2SAT 94–98
--- NOTE | 2020-01-25 05:05 | PC.NURSE ---
Pt rested comfortably this shift. While awake O2 sat 92-95% on room air but once he falls asleep O2 sat 82-88%. Placed pt on 2L per nc while sleeping.
--- NOTE | 2020-01-25 07:19 | P.PN_ITS ---
Subjective Subjective: Interval history: He is doing well overall. Denies any complaints. Medications: Reviewed: Yes Medication Review Details: Current Medications Acetaminophen (Tylenol) 650 mg PO Q6H PRN PRN Reason: Mild/Mod Pain Or Temp >/= 101 Albuterol/Ipratropium (Duoneb) 3 ml INHALATION Q4H PRN PRN Reason: SHORTNESS OF BREATH Aspirin (Aspirin Ec) 81 mg PO DAILY [facility] Last Admin: 01/25/20 08:40 Dose: 81 mg Documented by: Atorvastatin Calcium (Lipitor) 80 mg PO BEDTIME [facility] Last Admin: 01/24/20 20:26 Dose: 80 mg Documented by: Clopidogrel Bisulfate (Plavix) 75 mg PO DAILY [facility] Last Admin: 01/25/20 08:41 Dose: 75 mg Documented by: Furosemide (Lasix) 40 mg PO DAILY@0800 [facility] Last Admin: 01/25/20 08:39 Dose: 40 mg Documented by: Lisinopril (Prinivil) 2.5 mg PO DAILY [facility] Last Admin: 01/25/20 08:40 Dose: 2.5 mg Documented by: Metoprolol Succinate (Toprol Xl) 50 mg PO DAILY [facility] Last Admin: 01/25/20 08:41 Dose: 50 mg Documented by: Morphine Sulfate (Morphine) 4 mg IVP Q4H PRN PRN Reason: SEVERE PAIN Ondansetron HCl (Zofran) 4 mg PO Q8H PRN PRN Reason: NAUSEA AND VOMITING Pantoprazole Sodium (Protonix) 40 mg PO DAILY [facility] Last Admin: 01/25/20 08:41 Dose: 40 mg Documented by: Vitals/I&O/Wt Last Vital Signs Temp 98.2 F 01/25/20 04:28 Pulse 67 01/25/20 05:52 Resp 12 01/25/20 04:28 BP 114/68 01/25/20 04:28 Pulse Ox 94 01/25/20 04:28 01/24/20 01/25/20 01/25/20 22:59 06:59 14:59 Intake Total 360 / 600 0 / 600 Output Total 200 / 1275 200 / 1475 Balance 160 / -675 -200 / -875 Cumulative I&O 01/22/20 23:30 thru 01/25/20 05:51 Intake Total 1225 Output Total 6350 Balance -5125 Weight last 48 hrs Weight 225 lb 9.6 oz Weight 230 lb 3 oz Physical Exam Const: COMMON NORMALS: no acute distress and patient oriented x3 HENMT: COMMON NORMALS: normocephalic and atraumatic HEAD & SCALP: normocephalic and atraumatic Neck/C-Spine: COMMON NORMALS: no JVD Resp: COMMON NORMALS: normal respiratory effort AUSCULTATION: no crackles, no rales, no wheezes and diminished lung sounds bilateral (bases) Cardio: COMMON NORMALS: no JVD, regular rhythm, S1 normal heart sound present and S2 normal heart sound present RHYTHM: regular rhythm HEART SOUNDS: S1 normal heart sound present and S2 normal heart sound present Extremity: COMMON NORMALS: no joint enlargement and no pedal edema Neuro: COMMON NORMALS: patient oriented x3 Skin: COMMON NORMALS: no rashes or lesions noted GENERAL SKIN EXAM: no rashes or lesions noted Data : 01/25/20 10:20 01/25/20 10:20 A&P Assessment and plan (1) CHF exacerbation: Not on diuretics at home. currently on lasix 40 mg IV twice a day; continue to closely monitor I/O and daily weight -on low dose lisinopril. transition to metoprolol succinate. -transition to PO lasix 40 mg daily along with potassium 20 M EQ daily. He seems stable to be discharged home today. Follow-up with Ms. Monica Clemente in 1-[address] Agarwal in 8 weeks. Status: Acute Qualifiers: Heart failure type: systolic Qualified Code(s): I50.23 - Acute on chronic systolic (congestive) heart failure (2) Elevated troponin: NSTEMI type 2 in setting of decompensated CHF Status: Acute (3) Pulmonary edema: resolevd with diuresis. Status: Acute Qualifiers: Chronicity: acute Qualified Code(s): J81.0 - Acute pulmonary edema (4) Coronary artery disease: recent LAD stent, continue DAPT, statin and beta bg Status: Acute Qualifiers: Associated angina: without angina Coronary Disease-Associated Artery/L esion type: [place] artery [place] vs. transplanted heart: [place] heart Qualified Code(s): I25.10 - Atherosclerotic heart disease of [place] coronary artery without angina pectoris (5) Hyperlipidemia: on statin Status: Acute Qualifiers: Hyperlipidemia type: mixed hyperlipidemia Qualified Code(s): E78.2 - Mixed hyperlipidemia Additional A&P Information CAROL: Creatinine has improved to 1.1 today. Thank you for allowing me to participate in patient's care. Please feel free to call with questions or concerns. Attestations Medical Necessity Statement*: Stable to be discharged home from cardiac standpoint. Coding Level of Care Code Acute Supervisor Telephone Information for [facility] Fwd Exam Detailed Diagnoses CHF exacerbation I50.23 Heart failure type: systolic Elevated troponin R79.89 Pulmonary edema J81.0 Chronicity: acute Coronary artery disease I25.10 Associated angina: without angina Coronary Disease-Associated Artery/Lesion type: [place] artery [place] vs. transplanted heart: [place] heart Hyperlipidemia E78.2 Hyperlipidemia type: mixed hyperlipidemia
[2020-01-25] MEDS: FUROsemide 40 mg Tablet PO (08:39)
[2020-01-25] MEDS: aspirin 81 mg EC Tablet PO (08:40)
[2020-01-25] MEDS: lisinopril 5 mg Tablet 2.5 MG PO (08:40)
[2020-01-25] MEDS: pantoprazole DR 40 mg Tablet PO (08:41)
[2020-01-25] MEDS: clopidogrel 75 mg Tablet PO (08:41)
[2020-01-25] MEDS: metoprolol succinate ER (24 HR) 50 mg Tablet PO (08:41)
--- NOTE | 2020-01-25 08:44 | PC.NURSE ---
medications given per orders; educated patient on each medication with teach back method performed patient verbalized understanding
--- NOTE | 2020-01-25 10:16 | PM.DCS ---
Discharge Providers Date of Admission: 01/23/20 02:24 Date of Discharge: January 25, 2020 Attending Provider at Admission: [place] Attending Provider at Discharge: Hazel Villafuerte MD Primary Care Provider: Yuriy Salazar MD Diagnoses at Discharge Discharge Diagnosis (1) CHF exacerbation: Status: Acute Qualifiers: Heart failure type: systolic Qualified Code(s): I50.23 - Acute on chronic systolic (congestive) heart failure (2) Elevated troponin: Status: Acute (3) Pulmonary edema: Status: Acute Qualifiers: Chronicity: acute Qualified Code(s): J81.0 - Acute pulmonary edema (4) Coronary artery disease: Status: Acute Qualifiers: Coronary Disease-Associated Artery/Lesion type: [place] artery [place] vs. transplanted heart: [place] heart Associated angina: without angina Qualified Code(s): I25.10 - Atherosclerotic heart disease of [place] coronary artery without angina pectoris (5) Hyperlipidemia: Status: Acute Qualifiers: Hyperlipidemia type: mixed hyperlipidemia Qualified Code(s): E78.2 - Mixed hyperlipidemia Reason for Visit Reason for Visit: congested/sob Hospital Course Discharge Summary: Waqar Aparicio is a 69 year old gentleman with coronary artery disease, recent anterior wall STEMI at the beginning of this month, with noted occlusion of LAD, occlusion of ramus intermedius, subsequently 2 stents placed in proximal LAD. Ejection fraction noted 30% with dyskinetic apex. Repeat echo perfromed during current admission with no new changes. He does report also history of COPD, not oxygen dependent. He presented on 01/22 when he started having suddenly shortness of breath, coughing up blood-tinged sputum. Ct chest without any gross consolidation, procal negative. No evidence of PE. It showed B/L interstitial edema. Negative for COVID-19 and Rapid flu. Overall his symptoms appear to be related to pulmonary edema as a result of CHF exacerbation. Of note, patient was not on any diuretics at home and was trying to manage with low salt diet. He did well with iv diuresis, now changed to po lasix 40mg qd. He is being discharged today with po lasix 40mg daily and advise to check his weights daily and watch for any signs of worsening SOB or increasing LE edema. He also does mention that perhaps may have sleep apnea as noted by his , although never has been tested. Will arrange for sleep study as an outpatient. Other medications including ASA, plavix, B blockers, Doc and statin to continue. Troponins were elavted during admission, however these are likely residual and noted to trending down since his recent STEMI. Physical Exam Narrative: EXAM NARRATIVE: GEN: Awake, alert and oriented, no acute distress CVS: S1S2 N RS: CTA B/L Abd: Soft, nt/nd , bs+ [employer]: no focal neuro deficits EXT: no LE edema, clubbing or cyanosis Discharge Data Data Completed and Pending: Completed Studies During Hospitalization Category Date Time Status CT angio chest PE protcl [id number] Stat Cat Scan 01/23/20 00:12 Completed XR chest 1V german ble [id number] Stat Exams 01/22/20 23:46 Completed Pending at discharge Category Date Time Status Blood Culture Sta t Lab 01/23/20 00:47 Results Complete Blood Co unt w/Auto Stat Lab 01/25/20 10:11 Ordered Comprehensive Met abolic Panel Stat Lab 01/25/20 10:11 Ordered Vitals: Last Vital Signs Temp 97.6 F 01/25/20 07:54 Pulse 82 01/25/20 07:54 Resp 18 01/25/20 07:54 BP 114/72 01/25/20 07:54 Pulse Ox 98 01/25/20 07:54 Discharge Plan Discharge Patient Disposition: Home, Self-Care Condition: Stable Prescriptions: New furosemide 40 mg Tablet 40 mg PO DAILY 30 Days Qty: 30 RF: 1 Continued lisinopril 10 mg tablet 2.5 mg PO DAILY Qty: 90 RF: 4 metoprolol tartrate 50 mg tablet 25 mg PO BID Qty: 60 RF: 4 aspirin 81 mg Tablet,Delayed Release (Dr/Ec) 81 mg PO DAILY Qty: 90 RF: 4 atorvastatin 40 mg Tablet 80 mg PO BEDTIME Qty: 90 RF: 4 clopidogrel 75 mg Tablet 75 mg PO DAILY Qty: 90 RF: 4 Nitrostat 0.4 mg Tablet, Sublingual 0.4 mg sublingual Q5M PRN (Reason: Chest Pain) Qty: 30 RF: 3 Protonix 40 mg tablet,delayed release (DR/EC) 40 mg PO DAILY 28 Days RF: 3 Discharge Orders: Discharge Order (Routine); Ordered 01/25/20 Ordered By: Hazel Villafuerte Other Ambulatory Orders: Sleep Study/Titration (Routine) Timeframe: 2 Weeks Facility: [facility] - Location: Sleep Lab Ordered By: Hazel Villafuerte Referrals: [facility] [Outside] Yuriy Salazar MD [Primary Care Provider] - Ngoc Posadas MD [Physician] - 7-10 days Discharge Diet: Cardiac and Low Salt Discharge Activity: Resume usual activity Discharge Attestations Time Spent in Discharge Care*: less than 30 min Quality Metrics Clinical Quality Measures During this hospital stay, did patient experience: None Coding Level of Care Code Acute Merchandising Manager for [facility] Fwd Diagnoses CHF exacerbation I50.23 Heart failure type: systolic Elevated troponin R79.89 Pulmonary edema J81.0 Chronicity: acute Coronary artery disease I25.10 Coronary Disease-Associated Artery/Lesion type: [place] artery [place] vs. transplanted heart: [place] heart Associated angina: without angina Hyperlipidemia E78.2 Hyperlipidemia type: mixed hyperlipidemia
[2020-01-25 10:59] LABS: Alanine Aminotransferase 26 U/L (0-41); Albumin Level 3.7 g/dL (3.5-5.2); Alkaline Phosphatase 99 IU/L (40-130); Anion Gap 14.9 (5-19); Aspartate Amino Transferase 26 U/L (0-40); Blood Urea Nitrogen 26 mg/dL (8-23); Calcium 9.7 mg/dL (8.5-10.5); Carbon Dioxide 28 mmol/L (22-29); Chloride 99 mmol/L (98-107); Globulin 3.8 g/dL (1.3-4.6); Glomerular Filtration Rate 66.8 mL/min (90-130); Glucose 121 mg/dL (65-115); Osmolality Calculated 284 mOsm/kg (285-295); Potassium 3.9 mmol/L (3.5-5.1); Sodium 138 mmol/L (136-145); Total Bilirubin 0.5 mg/dL (0.15-1.2); Total Protein 7.5 g/dL (6.6-8.7)
--- NOTE | 2020-01-25 11:00 | PC.NURSE ---
Patient has been ambulating in [place] and visiting with other patients that have been ambulating as well.
[2020-01-25 11:02] LABS: Basophils # 0.1 10^3/uL (0.0-0.1); Basophils % 0.9 %; Eosinophils # 0.2 10^3/uL (0.0-0.8); Eosinophils % 2.4 %; Hematocrit 46.1 % (42.0-52.0); Hemoglobin 14.5 g/dL (11.7-16.6); Lymphocytes # 1.6 10^3/uL (0.8-4.8); Lymphocytes % 18.7 %; Mean Corpuscular HGB Conc 31.5 g/dL (30.0-36.0); Mean Corpuscular Hemoglobin 29.8 pg (28.0-34.0); Mean Corpuscular Volume 94.9 fL (80-94); Mean Platelet Volume 11.2 fL (7.4-10.4); Monocytes # 0.8 10^3/uL (0.2-0.9); Monocytes % 9.2 %; Neutrophils # 5.8 10^3/uL (1.8-7.7); Neutrophils % 68.4 %; Nucleated Red Blood Cells % 0 %; Platelet Count 434 10^3/cmm (130-400); Red Blood Count 4.86 10^6/uL (4.1-5.3); Red Cell Distribution Width 13.2 % (12.1-15.1); White Blood Count 8.5 10^3/uL (4.0-10.0)
== END 2020-01-25 13:10 | disposition home health service (06) | DRG 281 ==
LOC: ER 01-23 02:22 → ICU 01-23 04:36 → CSU 01-24 16:14
PROVIDERS: Admitting Provider Internal Medicine; Emergency Provider Emergency Medicine; PCP Family Medicine; Visit Provider Student in an Organized Health Care Education/Training Program
DX: I11.0 Hypertensive heart disease with heart failure (principal); I21.9 Acute myocardial infarction, unspecified; R04.2 Hemoptysis; I50.23 Acute on chronic systolic (congestive) heart failure; I25.10 Atherosclerotic heart disease of native coronary artery without angina pectoris; Z95.5 Presence of coronary angioplasty implant and graft; I25.2 Old myocardial infarction; J44.9 Chronic obstructive pulmonary disease, unspecified; K21.9 Gastro-esophageal reflux disease without esophagitis; E78.2 Mixed hyperlipidemia; Z87.891 Personal history of nicotine dependence; I08.1 Rheumatic disorders of both mitral and tricuspid valves; Z79.82 Long term (current) use of aspirin
CPT/HCPCS: 12345; 36415; 71045; 71275; 80048; 80053; 80306; 81001; 83605; 83735; 83880; 84145; 84484; 85025; 85610; 85730; 87040; 87635; 87804; 93005; 94664; 96372; 96375; 99284; A9270; J1650; J1940; J2543; Q9967

== ENCOUNTER → 2020-01-31 11:25 | Outpatient (BNVA) | payer OTHER, MEDICARE, SELFPAY | PROVIDERS: PCP Family Medicine; Visit Provider Internal Medicine Cardiovascular Disease | DX: I50.9 Heart failure, unspecified (principal); I25.10 Atherosclerotic heart disease of native coronary artery without angina pectoris; I10 Essential (primary) hypertension; E78.2 Mixed hyperlipidemia; Z87.891 Personal history of nicotine dependence | CPT/HCPCS: 80048; 83735; 83880 ==